=== PATIENT | male | born 1945 | race Caucasian/White ===

== ENCOUNTER 2016-11-23 04:48 | Inpatient (IN) ==
--- NOTE | 2016-11-23 05:16 | Emergency Department Note ---
Disposition Clinical Impression: Atrial fibrillation with RVR, NSTEMI (non-ST elevated myocardial infarction) Congestive heart failure Qualifiers: Congestive heart failure type: unspecified congestive heart failure type Congestive heart failure chronicity: acute Qualified Code(s): I50.9 - Heart failure, unspecified Disposition: Admitted As Inpatient Condition: Serious Arrhythmia/Palpitations HPI - General Chief Complaint: ED Shortness of Breath/Dyspnea Stated Complaint: SOB Time Seen by Provider: 11/23/16 05:04 Source: EMS Limitations: no limitations Nursing Notes Reviewed: Yes Vital Signs Reviewed: Yes - History of Present Illness HPI Narrative: 71-year-old male presents to the emergency department by embolus with a complaint of having palpitations for the past few days. Symptoms became much worse tonight. He states that every time he laid down to try to sleep heart would start racing and fluttering and make him short of breath. He denies any chest pain. He states he does have a history of atrial fibrillation intermittently. He has had some increased cough with white sputum production for the past one or 2 days. No fever. Pt Subjective Complaint: rapid heart beat, irregular heart beat, atrial fibrillation Onset (ago): day(s) (2) Duration: intermittent Severity: moderate Context: occurred during rest Arrhythmia History: atrial fibrillation Associated symptoms: Reports: shortness of breath, vomiting, cough. Denies: chest pain - Related Data Home Medications Medication Instructions Recorded Confirmed ALPRAZolam [Xanax 1 MG Tablet] 1 mg PO TID PRN 10/29/15 10/29/15 Aspirin [Adult Low Dose Aspirin EC] 81 mg PO DAILY 10/29/15 10/29/15 Atorvastatin Calcium [Lipitor] 80 mg PO HS 10/29/15 10/29/15 Carvedilol [Coreg] 3.125 mg PO BID 10/29/15 10/29/15 Clopidogrel [Plavix] 75 mg PO DAILY 10/29/15 10/29/15 Lisinopril [Zestril] 10 mg PO DAILY 10/29/15 10/29/15 Nitroglycerin [Nitrostat] 0.4 mg SL PRN PRN MDD 3 10/29/15 10/29/15 Oxycodone HCl/Acetaminophen 1 tab PO QID 10/29/15 10/29/15 [Percocet 10-325 mg Tablet] Previous Rx's Medication Instructions Recorded Levothyroxine [Synthroid] 50 mcg PO 30 #30 tablet 10/31/15 levoFLOXacin [Levaquin] 500 mg PO DAILY #7 tablet 01/22/16 predniSONE [PredniSONE] 60 mg PO DAILY #30 tablet 01/22/16 Allergies Allergy/AdvReac Type Severity Reaction Status Date / Time No Known Allergies Allergy Verified 11/23/16 04:51 All systems ED: reviewed and negative except as stated. Constitutional: Denies: fever, chills, weakness Cardiovascular: Reports: palpitations. Denies: chest pain, syncope Respiratory: Reports: cough, dyspnea, sputum production. Denies: hemoptysis Gastrointestinal: Reports: nausea, vomiting. Denies: abdominal pain, diarrhea, hematemesis, melena, hematochezia Genitourinary: Denies: dysuria Musculoskeletal: Denies: back pain, neck pain Integumentary: Denies: rash, lesions Neurological: Denies: headache, weakness, numbness, paresthesias, confusion Psychiatric: Denies: anxiety, depression Endocrine: Denies: fatigue Hematological/Lymphatic: Denies: easy bleeding, easy bruising, lymphadenopathy Allergic/Immunologic: Denies: facial swelling, urticaria, itchy eyes Past Medical History - Past Medical History Medical history: Reports: atrial fibrillation, COPD, coronary artery disease, CVA, myocardial infarction, other Surgical history: Reports: carotid endarterectomy, coronary bypass (CABG) Psychiatric history: Reports: no psych history - Social History Smoking Status: Current some day smoker Smokeless Tobacco Status: No Alcohol use: Reports: none Drug use: Reports: none Physical Exam - General Limitations: no limitations General appearance: alert, in no apparent distress - Head Head exam: atraumatic, normocephalic, normal inspection - Eye Eye exam: Present: normal appearance, PERRL. Absent: conjunctival injection - ENT ENT exam: normal exam, normal oropharynx, mucous membranes moist - Neck Neck exam: Present: normal inspection, full ROM, trachea midline. Absent: tenderness, meningismus, lymphadenopathy - Chest Chest inspection: Present: normal inspection, symmetric chest wall rise. Absent : tenderness - Respiratory Respiratory exam: Absent: normal lung sounds bilaterally (Breath sounds are decreased but equal bilaterally.), respiratory distress, wheezes, stridor - Cardiovascular Cardiovascular exam: Present: tachycardia, irregular rhythm, normal heart sounds - Abdominal Exam Abdominal exam: Present: soft, Non-Tender, normal bowel sounds - Extremities Exam Extremities exam: Present: normal inspection, full ROM. Absent: tenderness, pedal edema - Neurological Exam Neurological exam: Present: alert, oriented X3. Absent: motor sensory deficit - Psychiatric Psychiatric exam: Present: normal affect, normal mood - Skin Skin exam: Present: warm, dry, intact, normal color. Absent: cyanosis, diaphoresis Course Course Narrative: Patient presented with palpitations and shortness of breath. He is in atrial fibrillation with RVR. Patient given Cardizem bolus and started on a Cardizem drip. - Consultations Consultation #1: The hospitalist, Dr. aGllardo, was consulted and accepted admission of the patient. He requested giving the patient a dose of by mouth potassium and starting him on a heparin infusion. This was ordered. Time: 05:47 Vital Signs Temperature 98.7 F 11/23/16 04:52 Pulse Rate 128 11/23/16 04:52 Respiratory Rate 18 11/23/16 04:52 Blood Pressure 141/100 11/23/16 04:52 O2 Sat by Pulse Oximetry 91 11/23/16 04:52 Temperature 98.7 F 11/23/16 04:52 Pulse Rate 82 11/23/16 06:38 Respiratory Rate 18 11/23/16 06:52 Blood Pressure 172/86 11/23/16 06:52 O2 Sat by Pulse Oximetry 89 11/23/16 06:38 Oxygen Delivery Oxygen Delivery Nasal Cannula Arrhythmia/Palpitations - Medical Records Medical records reviewed: Yes I reviewed the patient's medical records. - Lab Data Lab results reviewed: Yes I reviewed the patient's lab results. Result diagrams: 11/23/16 05:04 11/23/16 05:04 Lab Results 11/23/16 11/23/16 11/23/16 Range/Units 05:04 05:04 05:04 WBC 9.7 (4.3-11.1) K/mcL RBC 4.62 (4.19-5.50) M/mcL Hgb 13.6 D (12.9-16.9) g/dL Hct 41.6 (37.5-50.1) % MCV 90.0 (83.0-100.0) fL MCH 29.4 (28.0-33.3) pg MCHC 32.7 (31.6-35.5) g/dL RDW 12.8 (11.5-14.5) % Plt Count 264 (140-400) K/mcL MPV 10.0 (9.4-12.4) fL Immature Gran % 0.5 (0-4) % Seg Neutrophils % 78.9 % Lymphocytes % 11.3 % Monocytes % 8.1 % Eosinophils % 0.8 % Basophils % 0.4 % Neutrophils # 7.6 (1.6-8.9) K/mcL Lymphocytes # 1.1 (0.6-4.6) K/mcL Monocytes # 0.8 (0.0-1.3) K/mcL Eosinophils # 0.1 (0.0-0.6) K/mcL Basophils # 0.0 (0.0-0.2) K/mcL PT 11.6 (9.4-12.1) Seconds INR 1.1 APTT 29.2 (26.0-36.0) Seconds Sodium 139 (136-145) mEq/L Potassium 3.7 (3.5-4.5) mEq/L Chloride 103 (98-109) mEq/L Carbon Dioxide 24 (19-29) mEq/L BUN 19 (8-26) mg/dL Creatinine 1.83 H (0.72-1.25) mg/dL Est GFR ( Amer) 45 L (> 60) Est GFR (Non-Af Amer) 37 L (> 60) BUN/Creatinine Ratio 10 (6-26) Glucose 122 H (70-99) mg/dL Calculated Osmolality 292 (280-300) Calcium 9.0 (8.6-10.8) mg/dL Troponin I (0-0.03) ng/mL 11/23/16 Range/Units 05:04 WBC (4.3-11.1) K/mcL RBC (4.19-5.50) M/mcL Hgb (12.9-16.9) g/dL Hct (37.5-50.1) % MCV (83.0-100.0) fL MCH (28.0-33.3) pg MCHC (31.6-35.5) g/dL RDW (11.5-14.5) % Plt Count (140-400) K/mcL MPV (9.4-12.4) fL Immature Gran % (0-4) % Seg Neutrophils % % Lymphocytes % % Monocytes % % Eosinophils % % Basophils % % Neutrophils # (1.6-8.9) K/mcL Lymphocytes # (0.6-4.6) K/mcL Monocytes # (0.0-1.3) K/mcL Eosinophils # (0.0-0.6) K/mcL Basophils # (0.0-0.2) K/mcL PT (9.4-12.1) Seconds INR APTT (26.0-36.0) Seconds Sodium (136-145) mEq/L Potassium (3.5-4.5) mEq/L Chloride (98-109) mEq/L Carbon Dioxide (19-29) mEq/L BUN (8-26) mg/dL Creatinine (0.72-1.25) mg/dL Est GFR ( Amer) (> 60) Est GFR (Non-Af Amer) (> 60) BUN/Creatinine Ratio (6-26) Glucose (70-99) mg/dL Calculated Osmolality (280-300) Calcium (8.6-10.8) mg/dL Troponin I 0.20 H* (0-0.03) ng/mL - Radiology Data Radiology results reviewed: Yes I reviewed the patient's radiology results. Chest X-Ray 11/23/16 05:11 IMPRESSION: Pulmonary edema. D/ / Alfonso Zapata MD / Alfonso Zapata MD Interpreting Provider: Alfonso Zapata MD - EKG Data EKG attestation: Yes I reviewed and interpreted this EKG. EKG results narrative: Atrial fibrillation with RVR, heart rate 120, interventricular conduction delay , possible left ventricular hypertrophy. Critical Care Time Critical Care Time: Yes Total Critical Care Time: 60 Attestation: Critical care performed: Time is exclusive of separately billable procedures. Time includes: direct patient care, patient reassessment, coordination of patient care, interpretation of data (laboratory data, radiology data, and respiratory data), review of patient's medical records, medical consultation and documentation of patient care. Procedures included in critical care time: Procedures excluded from critical care time:
[2016-11-23 05:22] LABS: Basophils % 0.4 %; Eosinophils # 0.1 K/mcL (0.0-0.6); Eosinophils % 0.8 %; Hematocrit 41.6 % (37.5-50.1); Immature Granulocytes % 0.5 % (0-4); Lymphocytes # 1.1 K/mcL (0.6-4.6); Lymphocytes % 11.3 %; Mean Corpuscular HGB Conc 32.7 g/dL (31.6-35.5); Mean Corpuscular Hemoglobin 29.4 pg (28.0-33.3); Monocytes # 0.8 K/mcL (0.0-1.3); Monocytes % 8.1 %; Neutrophils # 7.6 K/mcL (1.6-8.9); Platelet Count 264 K/mcL (140-400); Red Blood Count 4.62 M/mcL (4.19-5.50); Red Cell Distribution Width 12.8 % (11.5-14.5); Segmented Neutrophils % 78.9 %
[2016-11-23 05:27] LABS: INR 1.1; Prothrombin Time 11.6 Seconds (9.4-12.1)
[2016-11-23 05:28] LABS: Hemoglobin 13.6 g/dL (12.9-16.9)
[2016-11-23 05:30] LABS: Activated Partial Thrombo Time 29.2 Seconds (26.0-36.0)
[2016-11-23 05:31] LABS: Potassium 3.7 mEq/L (3.5-4.5)
[2016-11-23] MEDS ORDERED: Furosemide 40 MG/4 ML VIAL IVP ONE (05:42)
[2016-11-23] MEDS ORDERED: Aspirin 81 MG TAB.CHEW PO ONE (05:49)
[2016-11-23] MEDS ORDERED: *HR* Heparin 5,000 UNIT/ML VIAL IVP PRN (06:05)
[2016-11-23] MEDS ORDERED: *HR* Heparin 5,000 UNIT/ML VIAL IVP ONE (06:05)
[2016-11-23] MEDS: Heparin 25,000 UNIT/500 ML D5W 25,000 UNIT/500 ML MLS IVC SCH (06:31)
[2016-11-23] MEDS ORDERED: *HR* OxyCODONE/APAP 10/325 TABLET PO ONE (06:41)
[2016-11-23] MEDS ORDERED: Acetaminophen 325 MG TABLET PO PRN (07:29)
[2016-11-23] MEDS ORDERED: Naloxone 0.4 MG/ML INJ IVP PRN (07:29)
--- NOTE | 2016-11-23 08:23 | Internal Med History&Physical ---
Date of Encounter: 11/23/16 Time of Encounter: 08:15 Assessment and Plan (1) Atrial fibrillation with RVR Current visit: Yes Status: Acute Patient with A. fib in RVR. We will treat with IV diltiazem. Monitor heart rate closely. High risk for complications due to use of intravenous medications to control heart rate. Resume home medications. (2) NSTEMI (non-ST elevated myocardial infarction) Current visit: Yes Status: Suspected Patient with elevated troponin and shortness of breath/chest pain equivalent. Trend troponins. Started on IV heparin. If troponins rise, we will consult cardiology for further recommendations. (3) Chronic kidney disease, stage III (moderate) Current visit: Yes Status: Chronic Patient with chronic kidney disease. Creatinine is at baseline. (4) COPD (chronic obstructive pulmonary disease) Current visit: Yes Status: Suspected Will treat with bronchodilator nebs. No formal diagnosis of COPD. Chest x-ray does not show any acute infiltrate. O2 supplementation as needed. Qualifiers: COPD type: emphysema Emphysema type: centrilobular Qualified Code(s): J43.2 - Centrilobular emphysema (5) Congestive heart failure Current visit: Yes Status: Suspected Patient with pulmonary edema. Treated with Lasix in the ER. We will get 2-D echocardiogram. Follow renal function closely. Qualifiers: Congestive heart failure type: systolic Congestive heart failure chronicity : acute Qualified Code(s): I50.21 - Acute systolic (congestive) heart failure (6) Essential hypertension Current visit: Yes Status: Chronic Uncontrolled. Monitor blood pressure. Resume home medications. Will use intravenous medications if blood pressure remains elevated. Internal Medicine - H&P: HPI Chief complaint: Shortness of breath and palpitations Admitted From: Emergency Dept Plans for Post Hospital Care: Home History of present illness: Mr. Breaux is a 71 year old male patient with a history of coronary artery disease status post coronary artery bypass grafting, atrial fibrillation, COPD presented to the ER with complaints of shortness of breath and palpitations. This began early this morning. Patient became very anxious as a result and was struggling to breathe. EMS was called and on arrival they gave him a breathing treatment which seemed to improve his symptoms. He denies any chest pain. No fever chills or night sweats. He was recently started on Levaquin for an acute urinary tract infection which seems to have improved and he has completed the antibiotic course. No cough or increased sputum production. No dizziness or lightheadedness. No nausea or vomiting. Past Med Surg Social Fam HX - Past Medical History Attestation: Yes The following information was validated with the patient. Source: patient Medical history: atrial fibrillation, COPD, coronary artery disease, CVA, myocardial infarction, other Psychiatric history: no psych history - Past Surgical History Surgical History: carotid endarterectomy, coronary bypass (CABG) - Social History Smoking Status: Current some day smoker Smokeless Tobacco Status: No Alcohol use: none Drug use: none - Additional Family History Additional family history: Reviewed and found to be noncontributory at this time Internal Medicine - H&P: Meds ALPRAZolam [Xanax 1 MG Tablet] 1 mg PO TID PRN 10/29/15 [History] Aspirin [Adult Low Dose Aspirin EC] 81 mg PO DAILY 10/29/15 [History] Atorvastatin Calcium [Lipitor] 80 mg PO HS 10/29/15 [History] Carvedilol [Coreg] 3.125 mg PO BID 10/29/15 [History] Clopidogrel [Plavix] 75 mg PO DAILY 10/29/15 [History] Lisinopril [Zestril] 10 mg PO DAILY 10/29/15 [History] Nitroglycerin [Nitrostat] 0.4 mg SL PRN PRN MDD 3 10/29/15 [History] Oxycodone HCl/Acetaminophen [Percocet 10-325 mg Tablet] 1 tab PO QID 10/29/15 [ History] Levothyroxine [Synthroid] 50 mcg PO 0630 #30 tablet 10/31/15 [Rx] levoFLOXacin [Levaquin] 500 mg PO DAILY #7 tablet 01/22/16 [Rx] predniSONE [PredniSONE] 60 mg PO DAILY #30 tablet 01/22/16 [Rx] Allergies No Known Allergies Allergy (Verified 11/23/16 04:51) All Systems PM: A 10-system review of systems was performed and is negative for pertinent findings except as documented above in the HPI. - Constitutional Constitutional: no chills, no fever(s), no night sweats - EENT Eyes: no change in vision, no discharge, no pain, no photophobia Ears: no ear discharge, no ear pain, no tinnitus Nose, mouth and throat: no dysphagia, no nasal discharge, no neck pain, no sore throat - Cardiovascular Cardiovascular ROS IM: chest pain, dyspnea, dyspnea on exertion, irregular heart rhythm, palpitations, no diaphoresis, no lightheadedness, no syncope - Respiratory Respiratory: wheezing, no cough, no dyspnea, no excessive phlegm production - Gastrointestinal Gastrointestinal: no abdominal pain, no diarrhea, no hematemesis, no hematochezia, no melena, no nausea, no vomiting - Musculoskeletal Musculoskeletal ROS IM: no numbness, no tingling - Integumentary Integumentary IM: no rash, no unusual bruising - Neurological Neurological ROS: no confusion, no convulsions, no focal weakness, no numbness, no tingling, no tremor(s) - Hematologic/Lymphatic Hematologic/Lymphatic: no easy bruising - Constitutional Vitals: Temp Pulse Resp BP Pulse Ox 98 F 101 17 181/89 99 11/23/16 07:34 11/23/16 07:34 11/23/16 07:34 11/23/16 07:34 11/23/16 07:34 General appearance: Present: cooperative, mild distress, A&O X 3, pleasant, answers questions appropriately - Head Head exam: Present: atraumatic, normocephalic - Eye Eye exam: Present: EOMI, PERRL, conjuntiva pink, sclera anicteric - Respiratory Respiratory exam: Present: prolonged expiratory phase, wheezes. Absent: accessory muscle use, rales, rhonchi Additional comments: Basal crackles - Cardiovascular Cardiovascular exam: Present: RRR, +S1, +S2. Absent: diastolic murmur, gallop, rubs, systolic murmur - GI/Abdominal GI/Abdominal exam: Present: normal bowel sounds, soft, no peritoneal signs. Absent: distended, tenderness - Extremities Exam Extremities exam: Present: warm, radial pulses palpable and symetrical. Absent : calf tenderness, cyanotic, pedal edema - Neurological Exam Neurological exam: Present: alert, oriented X3, no focal deficits. Absent: facial droop, speech deficit - Psychiatric Psychiatric exam: Present: anxious - Skin Skin exam: Present: dry, intact Internal Med - H&P Results - Labs CBC & Chem 7: 11/23/16 05:04 11/23/16 05:04 - EKG Data -: EKG Interpreted by Myself - EKG Data EKG comments: 11/23/16 08:24 A. fib with RVR - Impressions Impressions Chest X-Ray 11/23/16 05:11 IMPRESSION: Pulmonary edema. D/ / Alfonso Zapata MD / Alfonso Zapata MD Interpreting Provider: Alfonso Zapata MD - Attending Attestation This document has been at least partially created by ishBowl recognition technology by Dr. Harding. Errors in grammar, wording or other phrases may exist. If errors are found after the documentation is signed, they will be addressed individually in the addendum section of this document when appropriate.
[2016-11-23] MEDS ORDERED: ALPRAZolam 1 MG TABLET PO PRN (08:27)
[2016-11-23] MEDS ORDERED: Ipratropium/Albuterol Neb 3 ML IH PRN (08:39)
[2016-11-23] MEDS: ALPRAZolam 1 MG TABLET PO PRN (08:59)
[2016-11-23] MEDS: Aspirin Enteric Coated 81 MG Tablet PO SCH (09:00)
[2016-11-23] MEDS: Ipratropium/Albuterol Neb 3 ML IH SCH ×4 (11:24→23:41)
--- NOTE | 2016-11-23 14:03 | ECHO - Doppler Report ---
Echo with Saline Contrast Name: Vitaliy Breaux Date of Study: 11/23/2016 Date: 1945 Ht: 71.0 in Medical Record#: [id number] Age: 71 Wt: 174.0 lb Gender: Male BSA: 1.99 Order #: [id number] Location: [facility] Room #: 2ne23 Reading Physician: Seth Gallegos DO, LUCILLE YATES Web Operations Specialist: Raúl Robin RDCS Ordering Physician: Pito Harding MD Primary Physician: Indications: Nstemi Impressions: LVEF 30%. Mildly dilated left ventricle. Severe global left ventricular systolic dysfunction. Moderate left ventricular diastolic dysfunction. Atypical septal motion consistent with bundle branch block/postoperative septum. Normal right ventricular structure and function. Severely dilated left atrium. Moderately dilated right atrium. No evidence of PFO with agitated saline contrast. Mild-moderate mitral regurgitation. Mild tricuspid regurgitation. Mild pulmonary hypertension. Left Ventricular Wall Motion: Rest Echo Findings The apex, apical inferior, mid inferior, basal inferior, apical anterior, mid anterior, basal anterior, apical septal, mid inferior septal, basal inferior septal, apical lateral, mid anterior lateral, basal anterior lateral, mid anterior septal, mid inferior lateral, basal anterior septal and basal inferior lateral benítez were hypokinetic. Findings: Study Quality * Technically adequate exam. ECG Findings * Sinus rhythm with BBB. Left Ventricle * LVEF 30%. * Mildly dilated left ventricle. * Severe global left ventricular systolic dysfunction. * Moderate left ventricular diastolic dysfunction. * Atypical septal motion consistent with bundle branch block/postoperative septum. Right Ventricle * Normal right ventricular structure and function. Left Atrium * Severely dilated left atrium. Right Atrium * Moderately dilated right atrium. Interatrial Septum * No evidence of PFO with agitated saline contrast. Aortic Valve * Trileaflet aortic valve with normal function. * No aortic regurgitation. * No aortic stenosis. Mitral Valve * Mild mitral annular calcification * No mitral stenosis. * Mild-moderate mitral regurgitation. Tricuspid Valve * Normal tricuspid valve structure. * Mild tricuspid regurgitation. * Mild pulmonary hypertension. Pulmonic Valve * Normal pulmonic valve structure and function. * No pulmonic regurgitation. Aorta * Normally sized aortic root. Pericardium * The pericardium appears normal. IVC * Normal IVC dimensions and inspiratory collapse. Pulmonary Artery * Normal visualized portions of the main pulmonary artery. History Hypertension Hypercholesteremia History of Smoking Years 50 Packs 0.5 Family History of CAD History of CAD/PTCA Myocardial Infarction Coronary Artery Bypass Graft Congestive Heart Failure 03/28/11 a Previous Echo was performed. Contrast: Agitated saline 2 ml. Measurements: BP: 181/ 89 2D Normal Values RVIDd: 2.80 cm <2.7 cm IVSd: 1.20 cm 0.6 - 1.0 cm LVIDd: 6.00 cm 3.7 - 5.6 cm LVPWd: 1.00 cm 0.6 - 1.1 cm LVIDs: 4.80 cm 1.5 - 3.6 cm AO: 3.50 cm < 4.0 cm %FS: 20.00 cm >25 % LA volume: 110 Mitral Valve Peak E:.72 m/sec Peak A:.34 m/sec E/A Ratio:2.1 Peak E' Lat Reji:3.02 cm/s Peak E' Med Reji:3.55 cm/s E/E' Lat Ratio:23.9 E/E' Med Ratio:20.3 Tricuspid Valve TV Regurg Peak Grad: 33.00mmHg TV Regurg Peak Reji: 2.89m/sec Updated by Seth Gallegos DO, FACMonserrat, GERONIMO ADKINS on 11/23/2016 1:58:26 PM electronically signed on 11/23/2016 1:58:58 PM with status of Final Wall Motion Bui: 1=Normal, 2=Hypokinesis, 3=Akinesis, 4=Dyskinesis, 5=Aneurysmal, 6=Hyperkinetic, X=Not Visualized (Blank)=Missing
[2016-11-23] MEDS ORDERED: Nitroglycerin 0.4 MG TAB.SUBL SL PRN (16:53)
[2016-11-23] MEDS ORDERED: Pregabalin 75 MG CAPSULE PO PRN (16:53)
[2016-11-23] MEDS: *HR* OxyCODONE/APAP 10/325 TABLET PO PRN (21:13)
[2016-11-23] MEDS: *HR* Heparin 5,000 UNIT/ML VIAL IVP PRN (21:17)
[2016-11-24 03:52] LABS: Hemoglobin A1C 5.2 %
[2016-11-24 03:58] LABS: Chol/HDL Ratio 3.5 (0-4.9)
[2016-11-24] MEDS: Ipratropium/Albuterol Neb 3 ML IH SCH ×6 (04:24→23:39)
[2016-11-24] MEDS: Heparin 25,000 UNIT/500 ML D5W 25,000 UNIT/500 ML MLS IVC SCH ×2 (05:09→20:00)
--- NOTE | 2016-11-24 07:03 | Electrocardiograph Report ---
[place] [id number] Test Date: 2016-11-23 Pat Name: Vitaliy Breaux Department: 102 Room: 2NE23 Gender: M Pairer Substandard: : 1945 Requested By: Larry Saba Order Number: [id number] Reading MD: Giovany Prince MD Measurements Intervals [place] Rate: 120 P: [place]: 0 QRS: 4 QRSD: 134 T: 161 QT: 318 QTc: 390 Interpretive Statements ATRIAL FIBRILLATION WITH RAPID VENTRICULAR RESPONSE WITH ABERRANT CONDUCTION OR VENTRICULAR PREMATURE COMPLEXES LBBB Electronically Signed On 11-24-2016 7:02:09 EDT by Giovany Prince MD
--- NOTE | 2016-11-24 08:36 | Cardiology Consult Note ---
Date of Encounter: 11/24/16 Time of Encounter: 08:26 Assessment and Plan (1) NSTEMI (non-ST elevated myocardial infarction) Current Visit: Yes Status: Suspected troponin .2>8.99>7.65 ECHO with EF 30%, left ventricular systolic and diastolic dysfunction, mitral and tricuspid regurgitation and mild pulm htn EKG with Afib RVR, PVC, LBBB cholesterol 110 on IV heparin, ptt 70.1 plan for cardiac cath (2) Atrial fibrillation with RVR Current Visit: Yes Status: Acute on diltiezem Monitor heart rate HR 82 BP 130/65 previously only taking 81mg asprin and 75 plavix recommend perioperative tech anticoagulation as outpt (3) Chronic kidney disease, stage III (moderate) Current Visit: Yes Status: Chronic CR 1.83, at baseline. (4) Essential hypertension Current Visit: Yes Status: Chronic uncontrolled Monitor blood pressure, currently 130/65 on diltiazem (5) COPD (chronic obstructive pulmonary disease) Current Visit: Yes Status: Suspected recommend continue bronchodilators and supplemental O2 as needed follow pulmonology recommendations Qualifiers: COPD type: emphysema Emphysema type: centrilobular Qualified Code(s): J43.2 - Centrilobular emphysema (6) Aortocoronary bypass status Current Visit: No Status: Chronic (7) CAD (coronary artery disease) Current Visit: No Status: Chronic Qualifiers: Coronary Disease-Associated Artery/Lesion type: [place] artery [place] vs. transplanted heart: [place] heart Associated angina: without angina Qualified Code(s): I25.10 - Atherosclerotic heart disease of [place] coronary artery without angina pectoris Discussion w patient/family: The assessment and plan as outlined above was discussed with the patient and/or family members who expressed understanding and agreement. All questions were answered. Thank you for involving us in the care of your patient. Please call with any questions. History of Present Illness Consult date: 11/24/16 Requesting physician: Neil Rangel Consult reason: troponin elevation Chief complaint: palpitations History of present illness: Mr. Breaux is a 71 year old male PMHx afib, CHF, HTN, s/p stent placement and CABG, hypothyroid, COPD with c/o palpitations. Pt states that he started having heart palpitations and shortness of breath about 3 days ago. He states racing irregular heart beats occurred intermittently throughout the day, seemed they were worse at night while laying down. He states irregular beats and dyspnea were progressively getting worse which which caused him to present to theER. Pt states he has had palpitations in the past with his afib, but has been well controlled by coreg for many years and have never been this bad before. palpitations and shortness of breath were not relieved at home with daily 81mg asprin or with rest. Pt denies having chest pain, diaphoresis, lightheadedness or syncope at this time. Past Med Surg Social Fam HX - Past Medical History Medical history: atrial fibrillation, COPD, coronary artery disease, CVA, myocardial infarction, other Psychiatric history: no psych history - Past Surgical History Surgical History: carotid endarterectomy, coronary bypass (CABG) - Social History Smoking Status: Current some day smoker Packs per day: 0.5 Smokeless Tobacco Status: No Alcohol use: none Drug use: none - Family History Mother Living Status: Hx Family Cardiac Disorders: Yes Father Living Status: Hx Family Cardiac Disorders: Yes Hx Family Respiratory Disorders: Yes Medications and Allergies ALPRAZolam [Xanax 1 MG Tablet] 1 mg PO TID PRN 10/29/15 [History] Aspirin [Adult Low Dose Aspirin EC] 81 mg PO DAILY 10/29/15 [History] Atorvastatin Calcium [Lipitor] 80 mg PO HS 10/29/15 [History] Carvedilol [Coreg] 3.125 mg PO BID 10/29/15 [History] Clopidogrel [Plavix] 75 mg PO DAILY 10/29/15 [History] Lisinopril [Zestril] 10 mg PO DAILY 10/29/15 [History] Nitroglycerin [Nitrostat] 0.4 mg SL PRN PRN MDD 3 10/29/15 [History] Oxycodone HCl/Acetaminophen [Percocet 10-325 mg Tablet] 1 tab PO QID PRN [History] Levothyroxine [Synthroid] 50 mcg PO 0630 #30 tablet 10/31/15 [Rx] predniSONE [PredniSONE] 60 mg PO DAILY #30 tablet 01/22/16 [Rx] Pregabalin [Lyrica] 150 mg PO BID PRN 11/23/16 [History] Allergies No Known Allergies Allergy (Verified 11/23/16 15:40) All Systems Review: A 10-system review of systems was performed and is negative for pertinent findings except as documented above in the HPI. - Constitutional Constitutional: no headache(s), no weakness - EENT Eyes: no blurred vision - Cardiovascular Cardiovascular: dyspnea at rest, dyspnea on exertion, irregular heart rhythm, palpitations, rapid heart rate, no chest pain at rest, no chest pain with exertion, no diaphoresis, no radiating jaw, neck or arm pain, no lightheadedness , no syncope - Respiratory Respiratory: dyspnea, wheezing, no hemoptysis - Gastrointestinal Gastrointestinal: no nausea - Musculoskeletal Musculoskeletal: back pain - Integumentary Integumentary: no unusual bruising - Neurological Neurological: no dizziness, no numbness, no syncope, no tingling - Hematological/Lymphatic Hematologic/Lymphatic: no easy bleeding, no easy bruising Physical Examination Vital Signs, Last 4 Hours Temp Pulse Resp BP Pulse Ox 11/24/16 07:00 97.6 F 82 15 130/65 93 11/24/16 04:50 67 16 136/58 95 General: Conversant, No Apparent Distress HEENT: Atraumatic, Normocephaly, Mucus Membranes Moist Neck: No JVD, Normal carotid pulses Cardiac: Other (irregular rhythm) Lungs: Other (wheezing anterior and posterior b/l throughout lung jackson) Neuro: Alert and responsive, No focal deficits noted Abdomen: Soft, Non-Tender Skin: No rashes noted on visualized skin Musculoskeletal: No Chest Wall Tenderness Extremities: No Clubbing, No Cyanosis, No Edema Results 11/23/16 05:04 11/23/16 05:04 Lab Results 11/23/16 11/23/16 11/23/16 12:02 12:02 18:28 APTT 70.5 H D Troponin I 8.99 H* 7.65 H* 11/23/16 11/24/16 18:28 03:15 APTT 55.7 H 70.1 H Troponin I - Imaging and Cardiology Echo: report reviewed - EKG Interpretation EKG results cardiology: personally reviewed, other (Afib RVR, PVC, LBBB) Consult Discharge Plan - Plan Referrals: Hansel Ness [Primary Care Provider] -
[2016-11-24] MEDS: Aspirin Enteric Coated 81 MG Tablet PO SCH (11:16)
[2016-11-24] MEDS: *HR* OxyCODONE/APAP 10/325 TABLET PO PRN ×3 (11:29→23:55)
--- NOTE | 2016-11-24 11:31 | Electrocardiograph Report ---
[place] [id number] Test Date: 2016-11-23 Pat Name: Vitaliy Breaux Department: 111 Room: 2NE23 Gender: M Global Lead: CESAR : 1945 Requested By: Neil Rangel Order Number: [id number] Reading MD: Vee Cardoza Measurements Intervals [place] Rate: 60 P: -19 CA: 175 QRS: -1 QRSD: 138 T: -65 QT: 476 QTc: 477 Interpretive Statements SINUS RHYTHM INTRAVENTRICULAR CONDUCTION DELAY LEFT VENTRICULAR HYPERTROPHY AND ST-T CHANGE Electronically Signed On 11-24-2016 11:30:10 EDT by Vee Cardoza
[2016-11-24] MEDS: ALPRAZolam 1 MG TABLET PO PRN ×3 (12:57→21:53)
--- NOTE | 2016-11-24 14:17 | Internal Med Progress Note ---
Date of Encounter: 11/24/16 Time of Encounter: 14:14 - Assessment and plan (1) NSTEMI (non-ST elevated myocardial infarction) Current Visit: Yes Status: Suspected Assessment and plan: troponin .2>8.99>7.65 ECHO with EF 30%, left ventricular systolic and diastolic dysfunction, mitral and tricuspid regurgitation and mild pulm htn EKG with Afib RVR, PVC, LBBB on IV heparin,cardiology consulted plan for cardiac cath will follow recommendation (2) COPD (chronic obstructive pulmonary disease) Current Visit: Yes Status: Suspected Assessment and plan: will continue duonebs. no wheezig on exam and sating ok on 2 l of NC. not in exacerbation and does not need steroids at this time. Qualifiers: COPD type: emphysema Emphysema type: centrilobular Qualified Code(s): J43.2 - Centrilobular emphysema (3) CAD (coronary artery disease) Current Visit: No Status: Chronic Qualifiers: Coronary Disease-Associated Artery/Lesion type: [place] artery [place] vs. transplanted heart: [place] heart Associated angina: without angina Qualified Code(s): I25.10 - Atherosclerotic heart disease of [place] coronary artery without angina pectoris (4) Essential hypertension Current Visit: Yes Status: Chronic Assessment and plan: BP stable (5) Atrial fibrillation with RVR Current Visit: Yes Status: Acute Assessment and plan: presenetd with Atrial fib RVR, started on cardizem drip HR much controlled now, resumed back on BB. - Time Spent With Patient 25 - 35 minutes - Subjective Interval history: seen at the bedside, denies any chest pain or sob today presented with sob yesterday. started on heparin drip for NSTEMI - Constitutional Vitals: Temp Pulse Resp BP Pulse Ox 97.6 F 82 16 130/65 92 11/24/16 07:00 11/24/16 07:00 11/24/16 11:08 11/24/16 07:00 11/24/16 11:08 General appearance: Present: cooperative, A&O X 3, pleasant, answers questions appropriately Exam: HEENT: Atraumatic, Normocephaly, Mucus Membranes Moist Neck: No JVD, Normal carotid pulses Cardiac: Other (irregular rhythm) Lungs: b/l clear, no added sounds Neuro: Alert and responsive, No focal deficits noted Abdomen: Soft, Non-Tender Skin: No rashes noted on visualized skin Musculoskeletal: No Chest Wall Tenderness Extremities: No Clubbing, No Cyanosis, No Edema Internal Medicine: Result - Labs CBC & Chem 7: 11/23/16 05:04 11/23/16 05:04 Labs: Cardiac Enzymes 11/23/16 Range/Units 18:28 Troponin I 7.65 H* (0-0.03) ng/mL - ABG Interpretation ABG results: PT/INR, D-dimer PT 11.6 Seconds (9.4-12.1) 11/23/16 05:04 Consult Discharge Plan - Plan Referrals: Hansel Ness [Primary Care Provider] -
--- NOTE | 2016-11-24 15:04 | Pre-Sedation Evaluation ---
Pre-sedation evaluation - Pre-sedation checklist Date of procedure: 11/24/16 Procedure: [facility] Recent Vitals: Last Vital Signs Temp 97.6 F 11/24/16 07:00 Pulse 82 11/24/16 07:00 Resp 16 11/24/16 11:08 BP 130/65 11/24/16 07:00 Pulse Ox 92 11/24/16 11:08 H&P (including ROS) documented in medical record: Yes Previous reaction to sedatives/anesthetics: No Dietary Status: NPO after Midnight Dentition: No loose teeth or bridges ASA Classification *see protocol: CLASS II-Mild systemic disease Plan of Care: Pt appropriate candidate for procedure/moderate/conscious sedation , Risks/benefits of procedure/sedation discussed w/ patient/family
[2016-11-24] MEDS ORDERED: 0.9 % Sodium Chloride 1,000 ML ONE ×2 (15:27→15:28)
[2016-11-24] MEDS ORDERED: *HR* Midazolam HCl 5 MG/5 ML VIAL IVP ONE (15:27)
[2016-11-24] MEDS ORDERED: *HR* FentaNYL (PF) 100 MCG/2 ML VIAL ONE (15:27)
[2016-11-24] MEDS ORDERED: *HR* Heparin 10,000 UNIT/10 ML VIAL ONE (15:29)
[2016-11-24] MEDS ORDERED: Heparin 1,000 UNITS/500 mL NS 500 ML ONE (15:29)
--- NOTE | 2016-11-24 16:28 | Event Note ---
Date of Encounter: 11/24/16 Time of Encounter: 16:30 - Cardiology Event Note 2/2 patent bypasses LEBLANC LAD, SVG PDA with nonobstructive disease in the circumflex. EF 20-25%. Suspect myocarditis, probably viral, as cause of NSTEMI /?acute CHF.
--- NOTE | 2016-11-24 16:43 | Invasive Diagnostic Lab Proc ---
Name: Vitaliy Breaux Date of Study: 11/24/2016 Date: 1945 Ht: 70.9in Medical Record#: [id number] Age: 71 Wt: 173.94lb Gender: Male BSA: 1.98 Order #: [id number] BMI: 24.35 Physicians Procedure Physician: Giovany Prince MD, [facility] Referring MD: Referring MD: Staff Name [facility] Scrub 03:38 PM Lana Ray RN Trauma Registrar 03:38 PM Alicia Breaux RN Monitor 03:38 PM Indications Indication Non-Stemi Procedures Performed Procedure L HRT ART/GRFT ANGIO Pre-Procedure Checklist Informed consent is complete signed and on chart. H\\T\\P is on chart. ID band is on and ID verified with patient. Patient NPO for procedure The procedure was described for the patient and questions were answered. Blood Pressure: 130/65 ECG is on chart. Rhythm: NSR Plan of Care Patient will tolerate the procedure without complications. Adequate level of comfort will be maintained. Hemodynamics will remain stable Patient will recover from procedure without complications. Respiratory function will be maintained. Cardiac rhythm will remain stable. Patient temperature will be maintained. Patient and/or family have verbalized understanding of the procedure. Patient Education Chief Complaint/Reason for Test: Cardiac Cath Developmental Category: Adult (18-64 years) Developmentally Appropriate for Age: Yes Learning Barriers: None Education Needs: Procedure Education Method: Verbal Information Taught: Cardiac Cath Educational Evaluation: Able to repeat information Intravenous Access Time IV Size Location DC'd Fluid/Drip Rate Units RN 03:24 PM 18g 1 1/4" Patent On Arrival Rt Antecubital 0.9NaCl 25 ml/hr Stephanie Osorio RN 03:40 PM 18g 1 1/4" Patent On Arrival Rt Antecubital 0.9NaCl 150 ml/hr Stephanie Osorio RN Allergies NKDA Vital Signs Time BP (mmHg) HR (bpm) O2 Sat. RR (bpm) LOC 03:40 PM / % 5 = Fully awake and oriented or at pre-proc level 03:40 PM / % 5 = Fully awake and oriented or at pre-proc level 03:55 PM / % 5 = Fully awake and oriented or at pre-proc level 04:00 PM / % 5 = Fully awake and oriented or at pre-proc level 03:41 PM 156 / 87 74 95 % 11 03:45 PM 148 / 76 64 97 % 17 03:50 PM 137 / 72 66 93 % 18 03:55 PM 132 / 72 80 94 % 19 04:00 PM 138 / 81 72 92 % 12 04:05 PM 131 / 70 68 93 % 19 04:10 PM 131 / 67 71 93 % 11 04:15 PM 133 / 71 117 92 % 15 Procedural Medications Time Medication Dose Units Method Given By 03:39 PM Oxygen 2 L/min nasal cannula Lana Ray RN 03:43 PM Versed 2 mg Intravenous Lana Ray RN 03:43 PM Fentanyl 50 mcg Intravenous Lana Ray RN 03:55 PM Lidocaine 2% 15 ml Subcutaneous Giovany Prince MD, FACC 03:55 PM Versed 1 mg Intravenous Lana Ray RN 03:56 PM Fentanyl 25 mcg Intravenous Lana Ray RN 04:21 PM Fentanyl 25 mcg Intravenous Lana Ray RN ASA Classification: CLASS II- Mild systemic disease (i.e. well-controlled diabetes, hypertension, asthma, cigarette smoking) Josefa Score Preprocedure Postprocedure Activity 2- Moves 4 extremities sustained head lift Activity 2- Moves 4 extremities sustained head lift Circulation 2- SBP +/= 20 points of pre-anesthetic level Circulation 2- SBP +/= 20 points of pre-anesthetic level Consciousness 2- Awake and alert oriented x 3 Consciousness 2- Awake and alert oriented x 3 O2 Saturation 2- Able to maintain O2 satruation of 92% on room air O2 Saturation 2- Able to maintain O2 satruation of 92% on room air Respiratory 2- Able to deep breathe and cough well Respiratory 2- Able to deep breathe and cough well Total Score 10 Total Score 10 Contrast Agent: Isovue Diagnostic Contrast: 77 ml Total Contrast: 77 ml Fluoro Dose: 460 mGy Procedure Log Time Note Enter By 03:25 PM CathStat 03:38 PM Pt arrived to lab animal technologist 2 at 15:[address] [facility] 03:38 PM Zohreh Borrego RT (R) Position: Scrub [facility]: [facility] 03:38 PM Lana Ray RN Position: Trauma Registrar Time in: 15:[address] [facility] 03:38 PM Alicia Breaux RN Position: Monitor Time in: 15:38 [facility] 03:38 PM Patient charges- Angio tray pack, Navilyst 3mm J, Pulse Oximetry and ACIST tubing and transducer :39 PM Case Delayed No :39 PM Hair removed from procedure site in holding area using clippers. Bilateral groin prepped with Chloraprep by Stephanie Osorio RN, safety strap applied then patient was draped. Skin intact. :39 PM Physician arrived 15:39 PM ASA Class CLASS II- Mild systemic disease (i.e. well-controlled diabetes, hypertension, asthma, cigarette smoking) :39 PM Meet and greet completed : PM Sign in performed according to hospital policy. :39 PM Procedure start 15:39 PM Time: 15:39 Oxygen on at 2 L/min per nasal cannula by Lana Ray RN [facility] :40 PM Time: 15:39 Patient comfortable and pain free: Yes ejohnson 03:40 PM Time: 15:40LOC: 5 = Fully awake and oriented or at pre-proc level ejohnson 03:40 PM Vitals capture started with the following parameters, Patient=Adult, Interval=5 min, Initial Rkweinnw=541 mmHg, Deflation Rate=5 mmHg, Cuff placed on Left Arm 03:40 PM [ Start or Stop Vital ] 03:40 PM IV 0.9 at 150ml/hr per V. O. Dr. Prince ejwansrossana 03:41 PM HR=74 bpm, XIKZ=202/87 mmhg, SpO2=95.0 %, Resp=11 B/min, Comment=SR 03:41 PM Recorded ECG: HR=76 Condition=Condition 1 03:43 PM Time: 15:43 Versed 2 mg Intravenous Given by Lana Ray RNwaavila 03:43 PM Time: 15:43 Fentanyl 50 mcg Intravenous Given by Lana Ray RNwaavila 03:45 PM HR=64 bpm, DJSK=491/76 mmhg, SpO2=97.0 %, Resp=17 B/min, Comment=SR 03:50 PM HR=66 bpm, BGJT=226/72 mmhg, SpO2=93.0 %, Resp=18 B/min, Comment=SR 03:55 PM Time: 15:40 Patient comfortable and pain free: Yes ejohnson 03:55 PM Time: 15:40LOC: 5 = Fully awake and oriented or at pre-proc level ejohnson 03:55 PM HR=80 bpm, ZSLJ=026/72 mmhg, SpO2=94.0 %, Resp=19 B/min, Comment=SR 03:55 PM Time: 15:55 15 ml Lidocaine 2% to right groin Subcutaneous Given by Giovany Prince MD, FACC ejohnson 03:55 PM Time: 15:55 Versed 1 mg Intravenous Given by Lana Ray RN ejohnson 03:56 PM Time: 15:56 Fentanyl 25 mcg Intravenous Given by Lana Ray RN ejohnson 03:57 PM Recorded Pressure: Ao, HR=79, Condition=Condition 1 (Aorta) Ao 140/77/102 03:58 PM Access obtained by percutaneous puncture. 5Fr 10cm Terumo Lena sheath placed in right Femoral artery. [id number] ejohnson 03:58 PM 5Fr FR 4 catheter inserted over the wire DNC ejohnson 03:59 PM Recorded Pressure: Ao, HR=89, Condition=Condition 1 (Aorta) Ao 122/87/104 04:00 PM SVG to the RPDA angio performed in multiple views. ejohnson 04:00 PM Time: 15:55 Patient comfortable and pain free: Yes ejohnson 04:00 PM Time: 15:55LOC: 5 = Fully awake and oriented or at pre-proc level ejohnson 04:00 PM HR=72 bpm, YVPT=376/81 mmhg, SpO2=92.0 %, Resp=12 B/min, Comment=SR 04:01 PM Recorded Pressure: Ao, HR=74, Condition=Condition 1 (Aorta) Ao 119/85/101 04:02 PM Catheter removed ejohnson 04:02 PM 5Fr IM catheter inserted over the wire [id number] ejohnson 04:03 PM Recorded Pressure: Ao, HR=73, Condition=Condition 1 (Aorta) Ao 118/76/96 04:04 PM Left VALENTIN to the LAD angio performed in multiple views. ejohnson 04:05 PM Catheter removed ejohnson 04:05 PM HR=68 bpm, WHLD=177/70 mmhg, SpO2=93.0 %, Resp=19 B/min, Comment=SR 04:06 PM 5Fr FL 4 catheter inserted over the wire DN ejohnson 04:07 PM LCA angiography performed in multiple views. ejohnson 04:07 PM Recorded Pressure: Ao, LT=722, Condition=Condition 1 (Aorta) Ao 112/85/98 04:08 PM Lesion found in LMCA. Pre Stenosis: 30 Pre ANN MARIE Flow: 3: Complete and Brisk Flow/Perfusion ejohnson 04:08 PM Lesion found in Proximal LAD. Pre Stenosis: 80 Pre ANN MARIE Flow: 3: Complete and Brisk Flow/Perfusion ejohnson 04:08 PM Catheter removed ejohnson 04:08 PM 5Fr Pigtail catheter inserted over the wire [facility] ejohnson 04:08 PM Catheter selectively placed in left ventricle ejohnson 04:10 PM Recorded Pressure: LV, HR=74, Condition=Condition 1 (Left Ventricle) LV 135/11/21 04:10 PM Bolus angiogram of left Ventricle complete: 12 ml/sec for a total of 30 mls ejohnson 04:10 PM HR=71 bpm, XCKN=961/67 mmhg, SpO2=93.0 %, Resp=11 B/min, Comment=SR 04:11 PM Recorded Pressure: LV, Ao, OS=207, Condition=Condition 1 (Left Ventricle) LV 119/38/51, (Aorta) Ao 117/88/99 04:12 PM Catheter removed ejohnson 04:12 PM 5Fr 3DRC catheter inserted over the wire [id number] ejohnson 04:13 PM Catheter removed ejohnson 04:14 PM Lesion found in Proximal Circumflex. Pre Stenosis: 20 Pre ANN MARIE Flow: 3: Complete and Brisk Flow/Perfusion ejohnson 04:14 PM Lesion found in Mid Circumflex. Pre Stenosis: 20 Pre ANN MARIE Flow: 3: Complete and Brisk Flow/Perfusion ejohnson 04:14 PM Left Main Coronary Artery with 30% stenosis ejohnson 04:14 PM Proximal Left Anterior Descending Coronary Artery with 80% stenosis. ejohnson 04:14 PM Catheter removed ejohnson 04:15 PM Lesion found in Proximal RCA. Pre Stenosis: 100 Pre ANN MARIE Flow: 0: No Flow/No perfusion ejohnson 04:15 PM Circumflex, Obtuse Marginal, Left Posterior Descending, and Left Posterolateral Coronary Arteries with 20 % stenosis. ejohnson 04:15 PM YB=719 bpm, QAIE=250/71 mmhg, SpO2=92.0 %, Resp=15 B/min, Comment=SR 04:15 PM Time: 16:00LOC: 5 = Fully awake and oriented or at pre-proc level ejohnson 04:15 PM Time: 16:00 Patient comfortable and pain free: Yes ejohnson 04:16 PM Right Coronary, Right Posterior Descending Arteries with Right Posterolateral and Acute Marginal branches with 100 % stenosis. ejohnson 04:16 PM Coronary Dominance: right ejohnson 04:19 PM Procedure completed at 16:19 ejohnson 04:19 PM Sign out completed: Radiation Dose 460.22 mGy Fluoro Time: 5.5 Isovue 370 - 200ml contrast 77 ml given by Giovany Prince MD, FACC. Complications: NoneCardiac Rehab Consult needed: NoConfirmed administered medications: Yes ejohnson 04:19 PM Post ECG NSR ejohnson 04:20 PM Post Blood Pressure 133/71 ejohnson 04:20 PM Arterial sheath pulled using manual compression and sterile 4x4 pressure will be held for 15 minutes by Stephanie Osorio RN ejohnson 04:20 PM 16:20 Post Pulses Bilateral DP \\T\\ PT 1+ ejohnson 04:21 PM Information taught Cardiac Cath ejohnson 04:21 PM Time: 16:21 Fentanyl 25 mcg Intravenous Given by Lana Ray RN ejohnson 04:26 PM Education needs Plan of Care and Responsibilities of Patient in Care ejohnson 04:26 PM Learning barriers :None ejohnson 04:26 PM Education Methods Verbal ejohnson 04:26 PM Education evaluation Able to repeat information ejohnson 04:26 PM Plavix, Effient or Brilinta given No ejohnson 04:26 PM Family was updated by telephone per patient request (daughter Belle) ejohnson 04:27 PM Complications: None ejohnson 04:36 PM Report given to Maria Antonia CHRIS Pt taken to E Room #23. 16:36 ejohnson 04:37 PM Patient out of room: 16:37 ejohnson 04:37 PM Opsite applied ejohnson 04:37 PM Site status No bleeding/hematoma - Rt Groin as reported by Stephanie Oosrio RN at 16:37 ejohnson Complications Complication None Hemodynamics Pressures Site Systolic/A Wave Diastolic/V Wave Mean AO 140 77 102 AO 122 87 104 AO 119 85 101 AO 118 76 96 AO 112 85 98 LV 135 11 21 LV 119 38 51 AO 117 88 99 Post Procedure Information Blood Pressure: 133/71 mmHg Rhythm: NSR Post procedural instructions were given Closure Device Time Device Success/Fail 11/24/2016 4:20:00 PM Manual Compression Successful Site Checks Time Location Status Staff Sheath In? Note 04:37 PM Rt Groin No bleeding/hematoma Stephanie Osorio RN Pulses Time Site Pre-Procedure Post-Procedure Note 11/24/2016 3:41:00 PM Bilateral DP 1+ 11/24/2016 3:41:00 PM Bilateral radial 2+ 4:20:00 PM Bilateral DP \\T\\ PT 1+ Updated by Alicia Breaux RN on 11/24/2016 4:38:43 PM Alicia Breaux RN electronically signed on 11/24/2016 4:39:14 PM with status of Final
[2016-11-25] MEDS: Ipratropium/Albuterol Neb 3 ML IH SCH ×3 (03:43→11:08)
[2016-11-25] MEDS: *HR* Heparin 5,000 UNIT/ML VIAL IVP PRN (04:23)
[2016-11-25] MEDS: Heparin 25,000 UNIT/500 ML D5W 25,000 UNIT/500 ML MLS IVC SCH (05:27)
[2016-11-25 08:04] VITALS: BP 141/73
[2016-11-25] MEDS: Aspirin Enteric Coated 81 MG Tablet PO SCH (08:04)
[2016-11-25] MEDS: *HR* OxyCODONE/APAP 10/325 TABLET PO PRN ×2 (08:04→13:50)
--- NOTE | 2016-11-25 09:39 | Cardiology Progress Note ---
Date of Encounter: 11/25/16 Time of Encounter: 09:34 Assessment and Plan (1) Atrial tachycardia Current Visit: Yes Status: Acute all EKGs and tele strips reviewed, patient with atrial tachycardia and frequent PACs seen, no evidence of afib appreciated Monitor heart rate continue taking asprin, plavix,coreg may not need assistant terminal manager anticoagulation in absence of afib recommend out-patient follow up and repeat ECHO in 3 months (2) CAD (coronary artery disease) Current Visit: No Status: Chronic troponin .2>8.99>7.65 ECHO with EF 30%, left ventricular systolic and diastolic dysfunction, mitral and tricuspid regurgitation and mild pulm htn EKG with Afib RVR, PVC, LBBB cholesterol 110 on IV heparin Cardiac catheterization showing patent stents, patent LEBLANC bypass, circumflex with non-obstructing disease recommend outpatient follow up and repeat ECHO in 3 months Qualifiers: Coronary Disease-Associated Artery/Lesion type: [place] artery [place] vs. transplanted heart: [place] heart Associated angina: without angina Qualified Code(s): I25.10 - Atherosclerotic heart disease of [place] coronary artery without angina pectoris (3) Chronic kidney disease, stage III (moderate) Current Visit: Yes Status: Chronic CR 1.83, at baseline. (4) Essential hypertension Current Visit: Yes Status: Chronic uncontrolled Monitor blood pressure (5) COPD (chronic obstructive pulmonary disease) Current Visit: Yes Status: Suspected recommend continue bronchodilators and supplemental O2 as needed follow pulmonology recommendations Qualifiers: COPD type: emphysema Emphysema type: centrilobular Qualified Code(s): J43.2 - Centrilobular emphysema (6) Aortocoronary bypass status Current Visit: No Status: Chronic Bypass graft patent on catheterization Discussion w patient/family: The assessment and plan as outlined above was discussed with the patient and/or family members who expressed understanding and agreement. All questions were answered. Thank you for involving us in the care of your patient. Please call with any questions. Subjective Principal diagnosis: CAD Interval history: 79 yo M PMhx CHF, Afib,HTN, CKD3 s/p CABG and stent placement presented with c/ o heart palpitations in Afib RVR with troponin elevations, placed on heparin drip underwent cardiac catheterization yesterday. Pt states palpitations have stopped since admission, he feels well overall. He denies any chest pain with improvement of dyspnea and states it is near baseline secondary to COPD. Denies any numbness/tingling, lightheadedness, diaphoresis and states he has no other concerns at this time. He states he feels much better since admission and wants to go home today because he has an appointment with his doctor tomorrow that he does not want to miss. Objective Vital Signs, Last 4 Hours Pulse Resp BP Pulse Ox 11/25/16 07:48 16 95 11/25/16 07:00 74 16 141/73 98 General: Conversant, No Apparent Distress HEENT: Atraumatic, Normocephaly, Mucus Membranes Moist Neck: No JVD, Normal carotid pulses Cardiac: No Murmur, Other (irregular) Lungs: Other (b/l wheeze, diiminshed breath sounds at bases) Neuro: Alert and responsive, No focal deficits noted Abdomen: Soft, Non-Tender Skin: No rashes noted on visualized skin Musculoskeletal: No Chest Wall Tenderness Extremities: No Clubbing, No Cyanosis, No Edema, Normal Pulses Results 11/23/16 05:04 11/23/16 05:04 Lab Results 11/24/16 11/25/16 10:47 03:16 APTT 62.6 H 46.5 H Consult Discharge Plan - Plan Referrals: Hansel Ness [Primary Care Provider] -
--- NOTE | 2016-11-25 11:07 | Invasive Diagnostic Lab ---
Name: Vitaliy Breaux Date of Study: 11/24/2016 Date: 1945 Ht: 180.0 cm /70.9 in Medical Record#: [id number] Age: 71 Wt: 78.9 kg / 173.94 lb Account/Order#: [id number] Gender: Male BSA: 1.98 Order #: [id number] Fluoro Dose: 460 mGy BMI: 24.35 Procedure Physician: Giovany Prince MD, [facility] Referring MD: Referring MD: Procedures Performed: LEFT HEART CATH W/ GRAFTS Indications: Non-Stemi Impressions: Severe atherosclerotic coronary artery disease. The left ventricle EF 20% S/P CABG 2 of 2 patent bypass grafts. Suspect myocarditis Recommendations: Optimal medical therapy of patient's disease. Aggressive risk factor modification. Obtain previous EF assessment History/Risk Factors: AFIB RVR Hypertension Dyslipidemia Cerebrovascular disease Chronic Lung Disease Prior NC Previous PCI Date: 07/13/2006 Procedure Access obtained in the right Femoral artery by percutaneous puncture Complications: None, None Contrast: Isovue 77ml Hemodynamics: Pressures Site Systolic/ A Wave Diastolic/ V Wave End Diastolic/ Mean HR AO 140 77 102 79 AO 122 87 104 89 AO 119 85 101 74 AO 118 76 96 73 AO 112 85 98 197 LV 135 11 21 74 LV 119 38 51 50 AO 117 88 99 296 LV Ventriculography Ejection Method: LV Gram Ejection Fraction: 20% Wall Motion: RAMOS Anterobasal Moderate Hypokinesis Anterolateral Severe Hypokinesis Apical: Severe Hypokinesis Inferoapical Severe Hypokinesis Inferobasal Severe Hypokinesis Coronary Dominance: right Lesion Findings/Interventions * Left Main Coronary Artery There is a 30% stenosis in the LMCA. The lesion has a ANN MARIE flow of 3. * Left Anterior Descending There is a 80% stenosis in the Proximal LAD. The lesion has a [place] flow of 3. * Circumflex There is a 20% stenosis in the Proximal Circumflex. The lesion has a ANN MARIE flow of 3. There is a 20% stenosis in the Mid Circumflex. The lesion has a ANN MARIE flow of 3. * Right Coronary Artery There is a 100% stenosis in the Proximal RCA. The lesion has a ANN MARIE flow of 0. (engaged with 3drc) Additional Findings: Grafts * The saphenous vein graft to the Right PDA is patent. ANN MARIE flow is 3. * The left internal mammary graft to the Mid LAD is patent. ANN MARIE flow is 3. Updated by Alicia Breaux RN on 11/24/2016 4:28:54 PM Giovany Prince MD, FACC electronically signed on 11/25/2016 11:03:14 AM with status of Final
[2016-11-25] MEDS: ALPRAZolam 1 MG TABLET PO PRN (11:31)
--- NOTE | 2016-11-25 12:01 | Discharge Summary ---
Date of Encounter: 11/25/16 Time of Encounter: 11:58 - Discharge Diagnosis (1) NSTEMI (non-ST elevated myocardial infarction) Priority: Primary Status: Suspected (2) COPD (chronic obstructive pulmonary disease) Priority: Secondary Status: Suspected Qualifiers: COPD type: emphysema Emphysema type: centrilobular Qualified Code(s): J43.2 - Centrilobular emphysema (3) CAD (coronary artery disease) Priority: Secondary Status: Chronic Qualifiers: Coronary Disease-Associated Artery/Lesion type: [place] artery [place] vs. transplanted heart: [place] heart Associated angina: without angina Qualified Code(s): I25.10 - Atherosclerotic heart disease of [place] coronary artery without angina pectoris (4) Essential hypertension Priority: Secondary Status: Chronic (5) Atrial fibrillation with RVR Priority: Secondary Status: Deleted - Discharge Medications Prescriptions: Albuterol Neb [AccuNeb] 0.63 mg IH Q2HR PRN #5 mls PRN Reason: Shortness Of Breath Furosemide [Lasix] 20 mg PO DAILY #30 tablet Nebulizer [Aeroeclipse] 1 each MC DAILY #1 each Potassium Chloride 10 meq PO DAILY #30 tab.er.prt Home Medications: ALPRAZolam [Xanax 1 MG Tablet] 1 mg PO TID PRN 10/29/15 [History] Aspirin [Adult Low Dose Aspirin EC] 81 mg PO DAILY 10/29/15 [History] Atorvastatin Calcium [Lipitor] 80 mg PO HS 10/29/15 [History] Carvedilol [Coreg] 3.125 mg PO BID 10/29/15 [History] Clopidogrel [Plavix] 75 mg PO DAILY 10/29/15 [History] Lisinopril [Zestril] 10 mg PO DAILY 10/29/15 [History] Nitroglycerin [Nitrostat] 0.4 mg SL PRN PRN MDD 3 10/29/15 [History] Oxycodone HCl/Acetaminophen [Percocet 10-325 mg Tablet] 1 tab PO QID PRN [History] Levothyroxine [Synthroid] 50 mcg PO 0630 #30 tablet 10/31/15 [Rx] predniSONE [PredniSONE] 60 mg PO DAILY #30 tablet 01/22/16 [Rx] Pregabalin [Lyrica] 150 mg PO BID PRN 11/23/16 [History] Albuterol Neb [AccuNeb] 0.63 mg IH Q2HR PRN #5 mls 11/25/16 [Rx] Furosemide [Lasix] 20 mg PO DAILY #30 tablet 11/25/16 [Rx] Nebulizer [Aeroeclipse] 1 each MC DAILY #1 each 11/25/16 [Rx] Potassium Chloride 10 meq PO DAILY #30 tab.er.prt 11/25/16 [Rx] Allergies/Adverse Reactions: Allergies No Known Allergies Allergy (Verified 11/23/16 15:40) Procedures/tests Complete & Pending: Procedures Performed prior 72 hours Category Date Time Status CL Cardiac Catheterization [CL] Routine Tube Draw Helper 11/24/16 13:00 Completed ECG 12 lead ECG [ECG] Routine Y 11/23/16 13:01 Completed EV echocardiogram Routine Y 11/23/16 08:34 Completed Date of admission: 11/23/16 07:29 Primary care physician: Hansel Ness Consults: 11/23/16 12:36 Consult to Cardiology [CONS] Stat Comment: Consulting Provider: Cardiology Sandy Reason for Consult: NSTEMI Time Notified: 12:38 Call Completed: Yes 11/24/16 12:54 Consult to Cardiac Rehabilitation-Phase1 [CONS] Routine Comment: Reason for Consult: NSTEMI, CHF Call Completed: No Discharging clinician: Zenobia Vargas Anticipated date of discharge: 11/25/16 - Patient Status Disposition: Home, Self-Care Condition: Fair Functional capacity at discharge: independent ambulation Overall status at discharge: patient is back to baseline - Discharge Instructions Instructions: Furosemide (By mouth), Potassium Chloride (By mouth), Chronic Kidney Disease (DC), Chronic Kidney Disease (GEN), Hypothyroidism (DC), Chronic Hypertension (DC), Cigarette Smoking and Your Health, Media Associate (GEN) Follow Up With: Hansel Ness [Primary Care Provider] - (CALL AND SCHEDULE AN APPT FOR 10 DAYS. ) Seth Gallegos DO [Partnered Physician] - Additional Instructions: CALL YOUR PRIMARY CARE PHYSICIAN FOR AN APPT IN 10 DAYS. CALL THE CARDIOLOGY [facility] TO SCHEDULE AN APPT FOR THE ECHOCARDIAGRAM. - Diet and Activity Activity: resume usual activities as tolerated Diet: low fat, low cholesterol, other (cardiac diet) Interval History: 79 yo M PMhx CHF, Afib,HTN, CKD3 s/p CABG and stent placement presented with c/ o heart palpitations in Afib RVR with troponin elevations, placed on heparin drip underwent cardiac catheterization . cardio was consulted. HE had ECHO with EF 30%, left ventricular systolic and diastolic dysfunction, mitral and tricuspid regurgitation and mild pulm htn EKG with Afib RVR, PVC, LBBB Underwent Cardiac catheterization showing patent stents, patent LEBLANC bypass, circumflex with non-obstructing disease This is new onset systolic heart failure , CMP ? etiology. Bypasses patent. ? recent viral syndrome with associated myocarditis/troponin elevation (pt reports urine infection, cough few weeks ago). - Recommend continue aspirin/statin/Coreg/Plavix therapy as per cardio - Currently, euvolemic. CKD noted. will dc on low dose lasix for now. Consider ACEi in future if Cr remains stable. - Repeat echocardiogram in 3 months. If EF remains < 35%, consider ICD therapy. all EKGs and tele strips reviewed, patient with atrial tachycardia and frequent PACs seen, no evidence of afib appreciated PACs, periods of atrial tachcyardia. - Computer interpretation of ECG was AF - sinus with atrial tachycardia and PACs noted. - No need for heparin/full PO AC. - Continue BB therapy adn aspirin patinet is being dc in stable condition today and will f/u with cadio with repeat ECHO Hospital course: Mr. Breaux is a 71 year old male - Time Spent with Patient Total time spent providing and/or coordinating discharge services: - Constitutional Vitals: Temp Pulse Resp BP Pulse Ox 97.9 F 74 16 141/73 97 11/25/16 04:25 11/25/16 07:00 11/25/16 11:10 11/25/16 07:00 11/25/16 11:10 General appearance: Present: cooperative, A&O X 3, pleasant, answers questions appropriately Exam: HEENT: Atraumatic, Normocephaly, Mucus Membranes Moist Neck: No JVD, Normal carotid pulses Cardiac: No Murmur, Other (irregular) Lungs:b/l lcear Neuro: Alert and responsive, No focal deficits noted Abdomen: Soft, Non-Tender Skin: No rashes noted on visualized skin Musculoskeletal: No Chest Wall Tenderness Extremities: No Clubbing, No Cyanosis, No Edema, Normal Pulses
--- NOTE | 2016-11-25 15:03 | Electrocardiograph Report ---
[place] [address] Test Date: 2016-11-25 Pat Name: Vitaliy rBeaux Department: 111 Room: 2NE23 Gender: M Journeyman Electrician: CESAR : 1945 Requested By: Neil Rangel Order Number: [id number] Reading MD: Giovany Prince MD Measurements Intervals [place] Rate: 83 P: MA: 0 QRS: 14 QRSD: 149 T: 178 QT: 444 QTc: 483 Interpretive Statements SINUS RHYTHM WITH PACS AND PVC LEFT BUNDLE BRANCH BLOCK Electronically Signed On 11-25-2016 15:01:48 EDT by Giovany Prince MD
== END 2016-11-25 14:00 | disposition home or self-care (01) | DRG 280 ==
LOC: 2NENU 04:48 → EMEROO 04:48 → 2NENU 07:10
PROVIDERS: ADMIT Pediatrics; ATTEND Internal Medicine

== ENCOUNTER 2016-12-04 04:25 | Inpatient (IN) ==
[2016-12-04] MEDS ORDERED: methylPREDNISolone 125 MG/2 ML VIAL IVP ONE (04:32)
[2016-12-04] MEDS ORDERED: Ipratropium/Albuterol Neb 3 ML IH ONE (04:32)
--- NOTE | 2016-12-04 04:56 | Emergency Department Note ---
Disposition Clinical Impression: Elevated troponin Acute exacerbation of CHF (congestive heart failure) Qualifiers: Congestive heart failure type: systolic Qualified Code(s): I50.23 - Acute on chronic systolic (congestive) heart failure Disposition: Admitted As Inpatient Condition: Critical Referrals: NO,PCP [Primary Care Provider] - Time of Disposition: 07:25 SOB HPI - General Chief Complaint: ED Shortness of Breath/Dyspnea Stated Complaint: short of breath Time Seen by Provider: 12/04/16 04:32 Nursing Notes Reviewed: Yes Vital Signs Reviewed: Yes - History of Present Illness Mr. Breaux, 71-year-old male, presents from home via EMS with chief complaint of shortness of breath. Onset today and progressive. Not improved with his albuterol rescue inhaler. Patient does have a history of COPD but does not use oxygen at home at baseline. He is followed by [place] [facility]. Patient was admitted to this facility, discharged 11/26/16 with NSTEMI. PMH: Is clearly less than 2 weeks ago. History CABG. COPD. Hypertension. A. fib with RVR. Anticoagulation: None Antiplatelet: Aspirin, Plavix ROS: Positive: Shortness of breath, cough which is unchanged from his baseline Negative: Fever, chills, chest pains, palpitations, nausea, vomiting, abdominal pains, dizziness, unusual weakness. - Related Data Home Medications Medication Instructions Recorded Confirmed ALPRAZolam [Xanax 1 MG Tablet] 1 mg PO TID PRN 10/29/15 11/23/16 Aspirin [Adult Low Dose Aspirin EC] 81 mg PO DAILY 10/29/15 11/23/16 Atorvastatin Calcium [Lipitor] 80 mg PO HS 10/29/15 11/23/16 Carvedilol [Coreg] 3.125 mg PO BID 10/29/15 11/23/16 Clopidogrel [Plavix] 75 mg PO DAILY 10/29/15 11/23/16 Lisinopril [Zestril] 10 mg PO DAILY 10/29/15 11/23/16 Nitroglycerin [Nitrostat] 0.4 mg SL PRN PRN MDD 3 10/29/15 11/23/16 Oxycodone HCl/Acetaminophen 1 tab PO QID PRN 10/29/15 11/23/16 [Percocet 10-325 mg Tablet] Pregabalin [Lyrica] 150 mg PO BID PRN 11/23/16 11/23/16 Previous Rx's Medication Instructions Recorded Levothyroxine [Synthroid] 50 mcg PO 0630 #30 tablet 10/31/15 predniSONE [PredniSONE] 60 mg PO DAILY #30 tablet 01/22/16 Albuterol Neb [AccuNeb] 0.63 mg IH Q2HR PRN #5 mls 11/25/16 Furosemide [Lasix] 20 mg PO DAILY #30 tablet 11/25/16 Nebulizer [Aeroeclipse] 1 each MC DAILY #1 each 11/25/16 Potassium Chloride 10 meq PO DAILY #30 tab.er.prt 11/25/16 Allergies Allergy/AdvReac Type Severity Reaction Status Date / Time No Known Allergies Allergy Verified 11/23/16 15:40 All systems ED: reviewed and negative except as stated. Past Medical History - Past Medical History Medical history: Reports: atrial fibrillation, COPD, coronary artery disease, CVA, myocardial infarction, other Surgical history: Reports: carotid endarterectomy, coronary bypass (CABG) Psychiatric history: Reports: no psych history - Social History Smoking Status: Current some day smoker Smokeless Tobacco Status: No Alcohol use: Reports: none Drug use: Reports: none Physical Exam Vital Signs Reviewed: Afebrile, not tachypneic, not tachycardic, and not hypoxic on 3 L via nasal cannula. General: Patient is alert, oriented, and in no acute distress. HEENT: No facial asymmetry. Head is normocephalic and atraumatic. Trachea midline. Cardiovascular: Heart regular rate and rhythm without clicks, rubs, gallops, or murmurs. No JVD. PMI nondisplaced. Bilateral radial pulses 2/4. Respiratory: Symmetric chest rise with poor respiratory effort. Prolonged expiratory phase. Bilateral breath sounds have diffuse wheezing without crackles or rhonchi. Abdomen: Bowel sounds present normoactive x-4 quadrants. Abdomen is soft, nondistended, and nontender. Psych: Patient's affect is appropriate for situation. Course Course Narrative: Patient received 324 mg aspirin prior to arrival PCI of 11/24/2016: 80% stenosis of proximal LAD. Interpreted stenosis of proximal RCA. Saphenous vein graft to right PDA is patent. Left internal mammary graft to the mid LAD is patent. LVEF 20%. Per EMS, patient's O2 sats were in the low 80s on room air. He improved to low 90s on 4 L nasal cannula. In our department, patient was 88-90% on 4 L nasal cannula. Chest x-ray was concerning for acute exacerbation of congestive heart failure. Patient placed on BiPAP after which his O2 saturations jumped to 95%. Given that he has no oxygen at home and was saturating for a nasal cannula, patient agrees to admission for continued BiPAP and management. 07:15 Spoke with the admitting hospitalist, Dr. Valentin, who agrees to accept the patient. Vital Signs Temperature 98.1 F 12/04/16 04:31 Pulse Rate 92 12/04/16 04:31 Respiratory Rate 16 12/04/16 04:31 Blood Pressure 153/90 12/04/16 04:31 O2 Sat by Pulse Oximetry 96 12/04/16 04:31 Temperature 98.1 F 12/04/16 04:31 Pulse Rate 87 12/04/16 06:52 Respiratory Rate 16 12/04/16 06:52 Blood Pressure 150/70 12/04/16 06:52 O2 Sat by Pulse Oximetry 95 12/04/16 06:52 Oxygen Delivery Oxygen Delivery Bipap Shortness of Breath/Dyspnea - Lab Data Result diagrams: 12/04/16 05:10 12/04/16 05:10 Lab Results 12/04/16 12/04/16 12/04/16 Range/Units 05:10 05:10 05:10 WBC 11.7 H (4.3-11.1) K/mcL RBC 4.27 (4.19-5.50) M/mcL Hgb 12.6 L (12.9-16.9) g/dL Hct 37.8 (37.5-50.1) % MCV 88.5 (83.0-100.0) fL MCH 29.5 (28.0-33.3) pg MCHC 33.3 (31.6-35.5) g/dL RDW 13.2 (11.5-14.5) % Plt Count 310 (140-400) K/mcL MPV 9.7 (9.4-12.4) fL Immature Gran % 0.4 (0-4) % Seg Neutrophils % 82.1 % Lymphocytes % 10.0 % Monocytes % 6.7 % Eosinophils % 0.5 % Basophils % 0.3 % Neutrophils # 9.6 H (1.6-8.9) K/mcL Lymphocytes # 1.2 (0.6-4.6) K/mcL Monocytes # 0.8 (0.0-1.3) K/mcL Eosinophils # 0.1 (0.0-0.6) K/mcL Basophils # 0.0 (0.0-0.2) K/mcL Sodium 134 L (136-145) mEq/L Potassium 4.6 H (3.5-4.5) mEq/L Chloride 101 (98-109) mEq/L Carbon Dioxide 22 (19-29) mEq/L BUN 33 H (8-26) mg/dL Creatinine 2.13 H (0.72-1.25) mg/dL Est GFR ( Amer) 37 L (> 60) Est GFR (Non-Af Amer) 31 L (> 60) BUN/Creatinine Ratio 15 (6-26) Glucose 133 H (70-99) mg/dL Calculated Osmolality 287 (280-300) Calcium 8.7 (8.6-10.8) mg/dL Troponin I 0.20 H* (0-0.03) ng/mL B-Natriuretic Peptide (0-100) pg/mL 12/04/16 Range/Units 05:10 WBC (4.3-11.1) K/mcL RBC (4.19-5.50) M/mcL Hgb (12.9-16.9) g/dL Hct (37.5-50.1) % MCV (83.0-100.0) fL MCH (28.0-33.3) pg MCHC (31.6-35.5) g/dL RDW (11.5-14.5) % Plt Count (140-400) K/mcL MPV (9.4-12.4) fL Immature Gran % (0-4) % Seg Neutrophils % % Lymphocytes % % Monocytes % % Eosinophils % % Basophils % % Neutrophils # (1.6-8.9) K/mcL Lymphocytes # (0.6-4.6) K/mcL Monocytes # (0.0-1.3) K/mcL Eosinophils # (0.0-0.6) K/mcL Basophils # (0.0-0.2) K/mcL Sodium (136-145) mEq/L Potassium (3.5-4.5) mEq/L Chloride (98-109) mEq/L Carbon Dioxide (19-29) mEq/L BUN (8-26) mg/dL Creatinine (0.72-1.25) mg/dL Est GFR ( Amer) (> 60) Est GFR (Non-Af Amer) (> 60) BUN/Creatinine Ratio (6-26) Glucose (70-99) mg/dL Calculated Osmolality (280-300) Calcium (8.6-10.8) mg/dL Troponin I (0-0.03) ng/mL B-Natriuretic Peptide 2845 H (0-100) pg/mL Attestation Statement - Attestation Attestation: I, Larry Saba MD, personally evaluated this patient and discussed their management with the resident physician. I reviewed the resident's note and agree with the documented findings, medical decision making, and plan of care. 71-year-old male presents to the emergency department by embolus with a complaint of acute shortness of breath that started about one hour prior to arrival. Patient has a history of recurrent episodes of this shortness of breath. He states that he gets scared and anxious which makes it worse. He is not on home oxygen. He was just admitted here about 10 days ago with a non- STEMI and had a cardiac catheter. He denies any chest pain tonight just shortness of breath. On examination patient is a well-developed well-nourished elderly male in no acute distress. He is alert and oriented 3. There is no cyanosis or diaphoresis. He does appear very anxious. Breath sounds are decreased but equal bilaterally with no rales or wheezes noted. Heart regular with a mild tachycardia. Abdomen is soft and nontender with normal bowel sounds. Chest x-ray shows increased pulmonary edema with superimposed infiltrate distant was CHF. Labs reviewed. Troponin 0.20. BNP 2800. EKG shows sinus tachycardia with intraventricular conduction delay. No significant change from prior EKG other than increased ST depression in V5 and V6. Patient was placed on BiPAP. The hospitalist was consulted for admission.
[2016-12-04 05:28] LABS: Basophils % 0.3 %; Eosinophils # 0.1 K/mcL (0.0-0.6); Eosinophils % 0.5 %; Hematocrit 37.8 % (37.5-50.1); Hemoglobin 12.6 g/dL (12.9-16.9); Immature Granulocytes % 0.4 % (0-4); Lymphocytes # 1.2 K/mcL (0.6-4.6); Mean Corpuscular HGB Conc 33.3 g/dL (31.6-35.5); Mean Corpuscular Hemoglobin 29.5 pg (28.0-33.3); Mean Corpuscular Volume 88.5 fL (83.0-100.0); Mean Platelet Volume 9.7 fL (9.4-12.4); Monocytes # 0.8 K/mcL (0.0-1.3); Monocytes % 6.7 %; Neutrophils # 9.6 K/mcL (1.6-8.9); Platelet Count 310 K/mcL (140-400); Red Blood Count 4.27 M/mcL (4.19-5.50); Red Cell Distribution Width 13.2 % (11.5-14.5); Segmented Neutrophils % 82.1 %
[2016-12-04 05:40] LABS: Calcium 8.7 mg/dL (8.6-10.8); Potassium 4.6 mEq/L (3.5-4.5)
[2016-12-04] MEDS ORDERED: Furosemide 40 MG/4 ML VIAL IVP ONE (06:32)
[2016-12-04] MEDS ORDERED: ALPRAZolam 1 MG TABLET PO ONE (07:38)
[2016-12-04] MEDS ORDERED: Pregabalin 75 MG CAPSULE PO PRN (07:48)
[2016-12-04] MEDS ORDERED: Nitroglycerin 0.4 MG TAB.SUBL SL SCH (07:48)
[2016-12-04] MEDS ORDERED: Naloxone 0.4 MG/ML INJ IVP PRN (07:53)
[2016-12-04] MEDS ORDERED: *HR* Morphine 2 MG/ML SYRINGE IVP PRN (07:53)
[2016-12-04] MEDS ORDERED: Ondansetron 4 MG/2 ML VIAL IVP PRN (07:53)
[2016-12-04] MEDS ORDERED: Acetaminophen 325 MG TABLET PO PRN (07:53)
--- NOTE | 2016-12-04 08:00 | Internal Med History&Physical ---
Date of Encounter: 12/04/16 Time of Encounter: 07:57 Assessment and Plan (1) Acute respiratory failure with hypoxia Current visit: Yes Status: Acute Acute hypoxic respiratory failure secondary to combination of acute systolic and diastolic CHF exacerbation/acute COPD exacerbation due to healthcare associated pneumonia present upon admission Continue strict I's and O's, daily weight, Lasix IV 40 mg twice a day Start cefepime, consider starting vancomycin if blood pressure drops Continue Solu-Medrol, DuoNeb's oxygen therapy and BiPAP as needed Omeprazole for GI prophylaxis and Lovenox for DVT prophylaxis. Patient will be admitted as inpatient. Expected to stay more than 2 midnights. Full code. Time spent on this admission 40 minutes (2) Acute exacerbation of CHF (congestive heart failure) Current visit: Yes Status: Acute Qualifiers: Congestive heart failure type: combined Qualified Code(s): I50.43 - Acute on chronic combined systolic (congestive) and diastolic (congestive) heart failure (3) Elevated troponin Current visit: Yes Status: Acute Likely secondary to demand ischemia (4) Hypothyroidism Current visit: No Status: Acute Continue levothyroxine Qualifiers: Hypothyroidism type: unspecified Qualified Code(s): E03.9 - Hypothyroidism , unspecified (5) Tobacco abuse Current visit: No Status: Acute Smoking cessation counseling given for 5 min . Nicotine patch ordered (6) CAD (coronary artery disease) Current visit: No Status: Chronic Qualifiers: Coronary Disease-Associated Artery/Lesion type: bypass graft [place] vs. transplanted heart: [place] heart Associated angina: without angina Qualified Code(s): I25.810 - Atherosclerosis of coronary artery bypass graft(s) without angina pectoris (7) Chronic kidney disease, stage III (moderate) Current visit: No Status: Chronic (8) COPD (chronic obstructive pulmonary disease) Current visit: No Status: Suspected Qualifiers: COPD type: emphysema Emphysema type: centrilobular Qualified Code(s): J43.2 - Centrilobular emphysema Internal Medicine - H&P: HPI Chief complaint: Shortness of breath Admitted From: Emergency Dept History of present illness: Mr. Breaux is a 71 year old male recently discharged less than 10 days ago from this hospital where he was admitted for non-STEMI and new onset CHF, has history of COPD not oxygen dependent, systolic and diastolic CHF with an ejection fraction of 30%, had a cardiac catheterization during past admission, no stents were placed as the patient has history of CABG in has history of prior stents that were patent, he is on aspirin and Plavix, was discharged on 20 mg of Lasix. He was brought by the EMS this time saturating in the low 80s, had to be started on a BiPAP the emergency room a chest x-ray shows acute pulmonary edema with also a right lower lobe infiltrate and a right small pleural effusion. The patient has been bringing up some yellowish phlegm, denies any fevers. His creatinine is 2.13. His baseline. White blood cell count is 11.7 troponin 0.2 BNP is 2845. Blood pressure is 153/90. He feels very weak and is feeling less short of breath after receiving Solu-Medrol Lasix , is currently on 4 L of oxygen and does not use oxygen at home. Past Med Surg Social Fam HX - Past Medical History Medical history: atrial fibrillation (Not on anticoagulation), CHF (Systolic and diastolic with an ejection fraction of 30%), COPD (Not oxygen dependent), coronary artery disease (History of stents and CABG), CVA, myocardial infarction , other (Non-STEMI, chronic kidney disease stage III, neuropathy, tobacco use, hypothyroidism, anxiety, atrial fibrillation with RVR) Psychiatric history: no psych history - Past Surgical History Surgical History: appendectomy, carotid endarterectomy, coronary bypass (CABG), other (Cardiac catheterization) - Social History Smoking Status: Current some day smoker Packs per day: One pack per week Smokeless Tobacco Status: No Alcohol use: none Drug use: none - Family History Mother Living Status: Hx Family Cardiac Disorders: Yes Father Living Status: Hx Family Cardiac Disorders: Yes Hx Family Respiratory Disorders: Yes - Additional Family History Additional family history: Father and mother with CAD/infarctions in their 60s Internal Medicine - H&P: Meds ALPRAZolam [Xanax 1 MG Tablet] 1 mg PO TID PRN 10/29/15 [History] Aspirin [Adult Low Dose Aspirin EC] 81 mg PO DAILY 10/29/15 [History] Atorvastatin Calcium [Lipitor] 80 mg PO HS 10/29/15 [History] Carvedilol [Coreg] 3.125 mg PO BID 10/29/15 [History] Clopidogrel [Plavix] 75 mg PO DAILY 10/29/15 [History] Lisinopril [Zestril] 10 mg PO DAILY 10/29/15 [History] Nitroglycerin [Nitrostat] 0.4 mg SL PRN PRN MDD 3 10/29/15 [History] Oxycodone HCl/Acetaminophen [Percocet 10-325 mg Tablet] 1 tab PO QID PRN [History] Levothyroxine [Synthroid] 50 mcg PO 0630 #30 tablet 10/31/15 [Rx] Pregabalin [Lyrica] 150 mg PO BID PRN 11/23/16 [History] Albuterol Neb [AccuNeb] 0.63 mg IH Q2HR PRN #5 mls 11/25/16 [Rx] Furosemide [Lasix] 20 mg PO DAILY #30 tablet 11/25/16 [Rx] Potassium Chloride 10 meq PO DAILY #30 tab.er.prt 11/25/16 [Rx] Allergies No Known Allergies Allergy (Verified 11/23/16 15:40) All Systems PM: A 10-system review of systems was performed and is negative for pertinent findings except as documented above in the HPI. Review of systems: Discharge of breath, no chest pain. Other systems out of the 10 reviewed were negative - Constitutional Vitals: Temp Pulse Resp BP Pulse Ox 98.1 F 87 16 150/70 95 12/04/16 04:31 12/04/16 06:52 12/04/16 06:52 12/04/16 06:52 12/04/16 06:52 General appearance: Present: A&O X 3 - Head Head exam: Present: atraumatic, normocephalic - Eye Eye exam: Present: PERRL, conjuntiva pink, sclera anicteric Pupils: Present: PERRL - Neck Neck exam general surgery: Present: supple, trachea midline. Absent: lymphadenopathy - Respiratory Respiratory exam: Present: CTAB, rales (Muscular crackles in the right with mild wheezing), wheezes. Absent: accessory muscle use, rhonchi - Cardiovascular Cardiovascular exam: Present: RRR, +S1, +S2. Absent: diastolic murmur, gallop, rubs, systolic murmur - GI/Abdominal GI/Abdominal exam: Present: normal bowel sounds, soft, no peritoneal signs. Absent: distended, tenderness - Extremities Exam Extremities exam: Present: warm, radial pulses palpable and symetrical. Absent : calf tenderness, cyanotic, pedal edema - Neurological Exam Neurological exam: Present: CN II-XII intact, oriented X3, no focal deficits. Absent: pronater drift, facial droop, speech deficit - Skin Skin exam: Present: dry, intact Internal Med - H&P Results - Labs CBC & Chem 7: 12/04/16 05:10 12/04/16 05:10
[2016-12-04] MEDS ORDERED: Nitroglycerin 0.4 MG TAB.SUBL SL PRN (08:46)
[2016-12-04] MEDS: MethylPREDNISolone 40 MG/ML VIAL IVP SCH ×2 (08:50→16:29)
[2016-12-04] MEDS: Furosemide 40 MG/4 ML VIAL IVP SCH ×2 (08:50→22:44)
[2016-12-04] MEDS: Cefepime HCl 1,000 MG in D5% in Water (Mini-Bag+) 100 ML IVPB SCH ×2 (08:51→22:44)
[2016-12-04] MEDS: Aspirin Enteric Coated 81 MG Tablet PO SCH (08:51)
[2016-12-04] MEDS: Nicotine 14 MG PATCH.TD24 TD SCH (08:52)
[2016-12-04] MEDS: *HR* OxyCODONE/APAP 10/325 TABLET PO PRN ×2 (08:58→17:40)
[2016-12-04] MEDS: Ipratropium/Albuterol Neb 3 ML IH SCH ×3 (10:35→21:33)
--- NOTE | 2016-12-04 13:07 | Electrocardiograph Report ---
[place] [id number] Test Date: 2016-12-04 Pat Name: Vitaliy Breaux Department: 104 Room: 2A25 Gender: M [employer]: : 1945 Requested By: Justo Mejias Order Number: [id number] Reading MD: Giovany Prince MD Measurements Intervals [place] Rate: 102 P: 48 [place]: 139 QRS: 21 QRSD: 153 T: 231 QT: 374 QTc: 432 Interpretive Statements SINUS TACHYCARDIA LEFT ATRIAL ENLARGEMENT LVCD consider atypical LBBB BASELINE ARTIFACT Electronically Signed On 12-04-2016 13:05:37 EDT by Giovany Prince MD
[2016-12-04] MEDS: ALPRAZolam 1 MG TABLET PO PRN (22:41)
[2016-12-05] MEDS: MethylPREDNISolone 40 MG/ML VIAL IVP SCH ×4 (00:54→23:22)
[2016-12-05] MEDS: Ipratropium/Albuterol Neb 3 ML IH SCH ×4 (03:50→21:38)
[2016-12-05 05:08] LABS: Hematocrit 32.8 % (37.5-50.1); Mean Corpuscular HGB Conc 33.5 g/dL (31.6-35.5); Mean Corpuscular Hemoglobin 30.1 pg (28.0-33.3); Mean Corpuscular Volume 89.9 fL (83.0-100.0); Mean Platelet Volume 10.4 fL (9.4-12.4); Platelet Count 260 K/mcL (140-400); Red Blood Count 3.65 M/mcL (4.19-5.50); Red Cell Distribution Width 13.2 % (11.5-14.5)
[2016-12-05 05:24] LABS: Calcium 8.2 mg/dL (8.6-10.8); Potassium 4.6 mEq/L (3.5-4.5)
[2016-12-05] MEDS: *HR* Enoxaparin 30 MG/0.3 ML SYRINGE SQ SCH (06:11)
[2016-12-05] MEDS: *HR* OxyCODONE/APAP 10/325 TABLET PO PRN ×3 (06:18→22:37)
[2016-12-05] MEDS: Aspirin Enteric Coated 81 MG Tablet PO SCH (08:39)
[2016-12-05] MEDS: Cefepime HCl 1,000 MG in D5% in Water (Mini-Bag+) 100 ML IVPB SCH ×2 (08:39→20:10)
[2016-12-05] MEDS: Nicotine 14 MG PATCH.TD24 TD SCH (08:44)
[2016-12-05] MEDS: Furosemide 40 MG/4 ML VIAL IVP SCH ×2 (08:45→22:38)
[2016-12-05] MEDS: ALPRAZolam 1 MG TABLET PO PRN ×3 (09:22→22:37)
--- NOTE | 2016-12-05 13:39 | Internal Med Progress Note ---
Date of Encounter: 12/05/16 Time of Encounter: 13:38 - Assessment and plan (1) Acute exacerbation of CHF (congestive heart failure) Current Visit: Yes Status: Acute Assessment and plan: Patient has elevated BNP and chest X ray findings consistent with CHF exacerbation. Per chart review his echo LVEF was 30% on 11/26/2016. He has combined systolic and diastolic dysfunction. He had a cardiac catheterization which showed patent CABG grafts. We will treat this with Lasix 40 mg twice a day. Qualifiers: Congestive heart failure type: combined Qualified Code(s): I50.43 - Acute on chronic combined systolic (congestive) and diastolic (congestive) heart failure (2) Acute respiratory failure with hypoxia Current Visit: Yes Status: Acute (3) Right lower lobe pneumonia Current Visit: Yes Status: Acute Assessment and plan: Patient has recurrent hospitalizations, we will treat as healthcare associated pneumonia with vancomycin and Levaquin. Follow-up blood cultures. Obtain sputum culture. Oxygen by nasal cannula. Qualifiers: Pneumonia type: due to unspecified organism Qualified Code(s): J18.1 - Lobar pneumonia, unspecified organism (4) COPD exacerbation Current Visit: Yes Status: Acute Assessment and plan: Patient has clear lung sounds today. No wheezing. Likely mild exacerbation. He was started on IV steroids. We will continue this and switch to oral prednisone tomorrow. (5) DVT prophylaxis Current Visit: No Status: Acute Assessment and plan: On Lovenox. (6) Hypothyroidism Current Visit: No Status: Acute Assessment and plan: Patient has a history of myxedema coma, clinically he appears euthyroid. However he does have CHF exacerbation. His TSH was elevated to 18 and 3 days ago. We will check free T4 and T3. Continue with levothyroxine. Qualifiers: Hypothyroidism type: unspecified Qualified Code(s): E03.9 - Hypothyroidism , unspecified - Subjective Interval history: 12/05/2016: Patient presented to the hospital with gradual onset of severe shortness of breath over the last 2 days. This has become severe over the last 24 hours, associated with cough productive of yellow sputum, denies associated chest pain and fever. He says that shortness of breath has significantly improved overnight denies nausea vomiting. - Constitutional Vitals: Temp Pulse Resp BP Pulse Ox 97.8 F 64 14 83/40 95 12/05/16 11:15 12/05/16 11:15 12/05/16 11:15 12/05/16 11:15 12/05/16 11:15 General appearance: Present: A&O X 3 - Eye Eye exam: Present: PERRL, conjuntiva pink, sclera anicteric Pupils: Present: PERRL - Respiratory Respiratory exam: Present: CTAB. Absent: accessory muscle use, rales, rhonchi, wheezes - Cardiovascular Cardiovascular exam: Present: RRR, +S1, +S2. Absent: diastolic murmur, gallop, rubs, systolic murmur - GI/Abdominal GI/Abdominal exam: Present: normal bowel sounds, soft, no peritoneal signs. Absent: distended, tenderness - Extremities Exam Extremities exam: Present: warm, radial pulses palpable and symetrical. Absent : calf tenderness, cyanotic, pedal edema - Skin Skin exam: Present: dry, intact Internal Medicine: Result - Labs CBC & Chem 7: 12/05/16 04:36 12/05/16 04:36 Labs: Short CBC 12/05/16 Range/Units 04:36 WBC 9.8 (4.3-11.1) K/mcL Hgb 11.0 L D (12.9-16.9) g/dL Hct 32.8 L (37.5-50.1) % Plt Count 260 (140-400) K/mcL BMP 12/05/16 04:36 Sodium 131 L Potassium 4.6 H Chloride 95 L Carbon Dioxide 25 BUN 51 H D Creatinine 2.98 H Glucose 126 H Calcium 8.2 L Cardiac Enzymes 12/05/16 Range/Units 08:38 Troponin I 0.12 H* (0-0.03) ng/mL Consult Discharge Plan - Plan Referrals: Dr. Hansel Ness [Other]
[2016-12-06] MEDS: *HR* Enoxaparin 30 MG/0.3 ML SYRINGE SQ SCH (04:05)
[2016-12-06] MEDS: Ipratropium/Albuterol Neb 3 ML IH SCH ×4 (04:39→21:22)
[2016-12-06 05:36] LABS: Thyroid Stimulating Hormone 2.402 mcIU/mL (0.350-4.840); Triiodothyronine (T3) Free 1.41 pg/mL (1.71-3.71)
[2016-12-06] MEDS: MethylPREDNISolone 40 MG/ML VIAL IVP SCH ×2 (09:28→20:50)
[2016-12-06] MEDS: Cefepime HCl 1,000 MG in D5% in Water (Mini-Bag+) 100 ML IVPB SCH (09:28)
[2016-12-06] MEDS: Aspirin Enteric Coated 81 MG Tablet PO SCH (09:29)
[2016-12-06] MEDS: *HR* OxyCODONE/APAP 10/325 TABLET PO PRN ×3 (09:29→21:05)
[2016-12-06] MEDS: ALPRAZolam 1 MG TABLET PO PRN ×3 (09:29→21:05)
[2016-12-06] MEDS: Nicotine 14 MG PATCH.TD24 TD SCH (09:30)
[2016-12-06] MEDS: Furosemide 40 MG/4 ML VIAL IVP SCH ×2 (09:30→20:50)
--- NOTE | 2016-12-06 10:23 | Palliative - Consult Note ---
Date of Encounter: 12/06/16 Time of Encounter: 09:00 - Assessment and Plan (1) Dyspnea Current Visit: No Status: Acute Assessment and plan: Patient reports having dyspnea at rest at home on occasion. He desires home Oxygen and should consider qualifying. He reports having home O2 years ago at home after his CABG. Patient receiving lasix, duonebs, antibiotics and supplemental O2 for dyspnea. Encouraged patient to CDB and position for comfort with HOB up. Bedside IS added and instructed to perform X 10 hourly. Qualifiers: Dyspnea type: dyspnea on exertion Qualified Code(s): R06.09 - Other forms of dyspnea (2) Nicotine addiction Current Visit: Yes Status: Acute Assessment and plan: Patient refused nicoderm patch here. Reports still desires to smoke. Provided extensive patient education related to abuse, nicotine effects on the body related to his heart and lungs. Explained the dangers of using O2 and smoking if he qualifies for O2. Provided education packet as well. Patient verbalized understanding. Qualifiers: Nicotine product type: cigarettes Substance use status: uncomplicated Qualified Code(s): F17.210 - Nicotine dependence, cigarettes, uncomplicated (3) Goals of care, counseling/discussion Current Visit: Yes Status: Acute Assessment and plan: Patient lives at home with Son. Discussed patients current lung and cardiac diagnostic results related to his EF of 30% and SOB at rest. Explained that given these results that patient qualifies for Hospice care. He reports not being ready for that transition but would desire HH to assess his physical status and fluid volume status. Patient on lasix and potassium and I discussed the need to modify diet in relationship to sodium and recording daily weight. Patient open to considering possible HH for PT and reports having living will and DPOA. I requested that Son bring in a copy for EMR. Discussed Code Status. Option A - Full Code Option B - DNRCC -A Option C - DNRCC-A, DNI Patient desires to remain [place] Code for now till he can have further discussions with family. He also has a daughter who lives in [place], [place] I explained that given his health issues that it is important to have desires known to family for GOC can be met. He verbalized understanding. (4) COPD (chronic obstructive pulmonary disease) Current Visit: No Status: Suspected Qualifiers: COPD type: emphysema Emphysema type: centrilobular Qualified Code(s): J43.2 - Centrilobular emphysema (5) Congestive heart failure Current Visit: Yes Status: Suspected Qualifiers: Congestive heart failure type: combined Congestive heart failure chronicity : acute Qualified Code(s): I50.41 - Acute combined systolic (congestive) and diastolic (congestive) heart failure (6) Right lower lobe pneumonia Current Visit: Yes Status: Acute Assessment and plan: Antibiotics, Duonebs and O2. Qualifiers: Pneumonia type: due to unspecified organism Qualified Code(s): J18.1 - Lobar pneumonia, unspecified organism Palliative-CN HPI - Data of Consult Patient: new to practice Consult date: 12/06/16 Requesting Physician: Landen Browne MD Primary Care Provider: PCP NO - Consult Narrative Palliative Care/Comfort Measures: Palliative care Reason for consult: Goals of Care History of present illness: Mr. Breaux is a 71 year old male admitted from home with Exacerbation of COPD. Patients recent ECHO reveals systolic and diastolic HF with an EF 30%. Patient lives with his son and denies using a cane or walker. He reports having dyspnea at rest and using 2 pillows under his head to sleep. he reports having suffered a back and leg injury as well as a CVA years ago that further impacts his ability to sleep flat on his back. Patient is still smoking and denies wanting to quit at present. Recent cardiac catheterization showed patent CABG grafts. This palliative care consult is for goals of care discussion. CC: Landen Browne MD Past Med Surg Social Fam HX - Past Medical History Source: patient, old records reviewed Medical history: atrial fibrillation, CHF, COPD, coronary artery disease, CVA, myocardial infarction, other Psychiatric history: anxiety, depression - Past Surgical History Surgical History: appendectomy, carotid endarterectomy, coronary bypass (CABG), other - Social History Smoking Status: Current some day smoker Packs per day: 1 Smokeless Tobacco Status: No Alcohol use: none Drug use: none Occupational status: unemployed Current living situation: With Family Activity Level: Independent ambulation Recent Out of Country Travel Within the Last 8 Weeks: No Exposure or Possible Exposure to Illness During Travel: No - Family History Mother Living Status: Hx Family Cardiac Disorders: Yes Father Living Status: Hx Family Cardiac Disorders: Yes Hx Family Respiratory Disorders: Yes Medications and Allergies ALPRAZolam [Xanax 1 MG Tablet] 1 mg PO TID PRN 10/29/15 [History] Aspirin [Adult Low Dose Aspirin EC] 81 mg PO DAILY 10/29/15 [History] Atorvastatin Calcium [Lipitor] 80 mg PO HS 10/29/15 [History] Carvedilol [Coreg] 3.125 mg PO BID 10/29/15 [History] Clopidogrel [Plavix] 75 mg PO DAILY 10/29/15 [History] Lisinopril [Zestril] 10 mg PO DAILY 10/29/15 [History] Nitroglycerin [Nitrostat] 0.4 mg SL PRN PRN MDD 3 10/29/15 [History] Oxycodone HCl/Acetaminophen [Percocet 10-325 mg Tablet] 1 tab PO QID PRN [History] Levothyroxine [Synthroid] 50 mcg PO 0630 #30 tablet 10/31/15 [Rx] Pregabalin [Lyrica] 150 mg PO BID PRN 11/23/16 [History] Albuterol Neb [AccuNeb] 0.63 mg IH Q2HR PRN #5 mls 11/25/16 [Rx] Furosemide [Lasix] 20 mg PO DAILY #30 tablet 11/25/16 [Rx] Potassium Chloride 10 meq PO DAILY #30 tab.er.prt 11/25/16 [Rx] Allergies No Known Allergies Allergy (Verified 11/23/16 15:40) All systems: reviewed and no additional remarkable complaints except as stated ( SOB at rest, orthopnea, cough of thick yellow sputum) - Constitutional Constitutional ROS PAL: fatigue - EENT Eyes: requires corrective lenses - Cardiovascular Cardiovascular ROS: dyspnea on exertion, orthopnea - Respiratory Respiratory: cough, dyspnea, dyspnea on exertion - Genitourinary Genitourinary ROS male: urinary frequency - Musculoskeletal Musculoskeletal ROS IM: muscle weakness - Psychiatric Psychiatric general PM: anxiety Palliative Care-Exam - Constitutional Vitals: Temp Pulse Resp BP Pulse Ox 97.5 F L 65 16 95/38 98 12/06/16 07:15 12/06/16 07:15 12/06/16 07:15 12/06/16 07:15 12/06/16 09:00 General appearance: Present: cooperative, no acute distress - Head Head Exam: Present: atraumatic, normal inspection, normocephalic - Eye Eye exam: Present: PERRL Pupils: Present: PERRL - ENT ENT exam: Present: mucous membranes moist - Neck Neck exam: Present: full ROM - Respiratory Respiratory exam: Present: decreased breath sounds - Expanded Respiratory Exam Location: decreased breath sounds: Left, Right, Lower - Cardiovascular Cardiovascular exam: Present: RRR, +S1, +S2 - Expanded Cardiovascular Exam Peripheral pulses: 1+: Femoral (L) PM, Femoral (R) PM, Posterior Tibialis (L), Posterior Tibialis (R), 2+: Carotid (L) PM, Carotid (R) PM, Radial (L), Radial ( R), Dorsalis Pedis (L) PM, Dorsalis Pedis (R) PM - GI/Abdominal Exam GI/Abdominal exam: Present: normal bowel sounds - Rectal Rectal Exam: Present: deferred - External exam: Present: normal external exam (voids per urinal) - Expanded Upper Extremities Exam Elbow exam: Present: full ROM Hand wrist exam: Present: full ROM - Expanded Lower Extremities Exam Hip exam: Present: full ROM - Neurological Exam Neurological exam: Present: alert, CN II-XII intact - Expanded Neurological Exam Coma Scale Eye Opening: Spontaneous Coma Scale Motor Response: Obeys Commands Coma Scale Verbal Response: Oriented Coma Scale Total: 15 - Psychiatric Psychiatric exam: Present: normal affect - Skin Skin exam: Present: intact, normal color, warm Internal Medicine - CN: Reslt - Labs CBC & Chem 7: 12/05/16 04:36 12/05/16 04:36 Consult Discharge Plan - Plan Referrals: Dr. Hansel Ness [Other] Palliative Quality Palliative Quality: Screen for Code Status: Yes, Screen for Goals of Care: Yes, Screen for Pain: Yes, If Pain Regimen Started, Initiate Bowel Regimen: No, Screen for Nausea/Vomitting: Yes
--- NOTE | 2016-12-06 11:19 | Internal Med Progress Note ---
Date of Encounter: 12/06/16 Time of Encounter: 11:17 - Assessment and plan (1) Acute respiratory failure with hypoxia Current Visit: Yes Status: Acute Assessment and plan: Multifactorial likely secondary to PNA/CHF decompensation/COPD exacerbation pt has history of noncompliance clinically improving Will decrease solumedrol to 40mg IV q12h and begin oral steroids in am continue bronchodilator support monitor O2 sat, O2 sat goal 89-92% continue IV diuresis given clinical presentation of CHF decompensation strict I/Os fluid restriction diet 2D echo from 11/23/16: LVEF 30% with mildly dilated LV and severe global LV systolic dysfunction. Moderal LV diastolic dysfunction will obtain O2 qualification test for home oxygen supplementation Pt was never started on Vanco and Levaquin and clinically improving with Cefepime Will continue Cefepime at this time (2) Acute exacerbation of CHF (congestive heart failure) Current Visit: Yes Status: Acute Assessment and plan: plan as listed above Qualifiers: Congestive heart failure type: combined Qualified Code(s): I50.43 - Acute on chronic combined systolic (congestive) and diastolic (congestive) heart failure (3) CAD (coronary artery disease) Current Visit: No Status: Chronic Assessment and plan: No acute signs of angina present continue home medications Qualifiers: Coronary Disease-Associated Artery/Lesion type: bypass graft [place] vs. transplanted heart: [place] heart Associated angina: without angina Qualified Code(s): I25.810 - Atherosclerosis of coronary artery bypass graft(s) without angina pectoris (4) COPD exacerbation Current Visit: Yes Status: Acute Assessment and plan: plan as listed above (5) [id number] kidney injury Current Visit: Yes Status: Acute Assessment and plan: Likely multifactorial (drug induced/hypotension) will hold lisinopril at this time closely monitor BP hold antihypertensive medications to prevent hypotensive episodes avoid nephrotoxic agents continue to monitor (6) Hypotension Current Visit: No Status: Acute Assessment and plan: Noted to be hypotensive which could be contributing to DOMITILA will hold antihypertensive medications for SBP<120 hold Lisinopril at this time continue to closely monitor Qualifiers: Hypotension type: unspecified hypotension type Qualified Code(s): I95.9 - Hypotension, unspecified (7) Hypothyroidism Current Visit: No Status: Acute Assessment and plan: continue levothyroxine Qualifiers: Hypothyroidism type: unspecified Qualified Code(s): E03.9 - Hypothyroidism , unspecified (8) Right lower lobe pneumonia Current Visit: Yes Status: Acute Assessment and plan: Plan as above Qualifiers: Pneumonia type: due to unspecified organism Qualified Code(s): J18.1 - Lobar pneumonia, unspecified organism (9) Tobacco abuse Current Visit: No Status: Acute Assessment and plan: smoking cessation counseling provided patient not ready to quit at this time refused nicotine replacement therapy (10) DVT prophylaxis Current Visit: No Status: Acute Assessment and plan: On Lovenox SQ - Subjective Interval history: Patient seen and examined at bedside. Resting comfortably in bed. Reports of feeling better and wishes to go home. Pt is educated extensively on the worsening of his renal function and him requiring oxygen support. He states he feels well and would like to go out and smoke a cigarette. Extensive smoking cessation counseling is provided and patient refuses to quit. He refuses nicotine supplementation, states if his cravings for a cigarette gets worst enough he will leave against medical advise. - Constitutional Vitals: Temp Pulse Resp BP Pulse Ox 97.6 F 66 16 106/44 95 12/06/16 11:00 12/06/16 11:00 12/06/16 11:00 12/06/16 11:00 12/06/16 11:00 General appearance: Present: A&O X 3, no acute distress, answers questions appropriately - Head Head exam: Present: atraumatic, normocephalic - Eye Eye exam: Present: normal appearance, conjuntiva pink, sclera anicteric - Respiratory Respiratory exam: Absent: respiratory distress, wheezes (bibasilar wheezing) - Cardiovascular Cardiovascular exam: Present: RRR, +S1, +S2. Absent: diastolic murmur, gallop, rubs, systolic murmur - GI/Abdominal GI/Abdominal exam: Present: normal bowel sounds, soft, no peritoneal signs. Absent: distended, tenderness - Extremities Exam Extremities exam: Present: warm, radial pulses palpable and symetrical. Absent : calf tenderness, cyanotic, pedal edema - Neurological Exam Neurological exam: Present: alert, oriented X3 - Psychiatric Psychiatric exam: Present: normal affect, normal mood Internal Medicine: Result - Labs CBC & Chem 7: 12/05/16 04:36 12/05/16 04:36 Consult Discharge Plan - Plan Referrals: Dr. Hansel Ness [Other]
[2016-12-06] MEDS: Cefepime HCl 2,000 MG in D5% in Water (Mini-Bag+) 100 ML IVPB SCH (20:47)
[2016-12-07] MEDS: *HR* OxyCODONE/APAP 10/325 TABLET PO PRN ×4 (03:20→21:03)
[2016-12-07 03:45] LABS: Hematocrit 32.7 % (37.5-50.1); Hemoglobin 10.5 g/dL (12.9-16.9); Immature Granulocytes % 0.9 % (0-4); Lymphocytes # 0.5 K/mcL (0.6-4.6); Mean Corpuscular HGB Conc 32.1 g/dL (31.6-35.5); Mean Corpuscular Hemoglobin 29.2 pg (28.0-33.3); Mean Corpuscular Volume 91.1 fL (83.0-100.0); Mean Platelet Volume 10.4 fL (9.4-12.4); Monocytes # 0.3 K/mcL (0.0-1.3); Monocytes % 2.6 %; Neutrophils # 9.6 K/mcL (1.6-8.9); Platelet Count 350 K/mcL (140-400); Red Blood Count 3.59 M/mcL (4.19-5.50); Red Cell Distribution Width 13.5 % (11.5-14.5); Segmented Neutrophils % 91.5 %
[2016-12-07 03:59] LABS: Magnesium 2.6 mg/dL (1.6-2.6); Phosphorous 4.4 mg/dL (2.3-4.7); Potassium 5.4 mEq/L (3.5-4.5)
[2016-12-07] MEDS: Ipratropium/Albuterol Neb 3 ML IH SCH ×4 (04:10→21:44)
[2016-12-07] MEDS: *HR* Enoxaparin 30 MG/0.3 ML SYRINGE SQ SCH (05:28)
[2016-12-07] MEDS: ALPRAZolam 1 MG TABLET PO PRN ×3 (08:51→21:04)
[2016-12-07] MEDS: Aspirin Enteric Coated 81 MG Tablet PO SCH (08:51)
[2016-12-07] MEDS: Furosemide 40 MG/4 ML VIAL IVP SCH (08:53)
[2016-12-07] MEDS: MethylPREDNISolone 40 MG/ML VIAL IVP SCH (08:53)
[2016-12-07] MEDS: Nicotine 14 MG PATCH.TD24 TD SCH (08:53)
--- NOTE | 2016-12-07 11:02 | Internal Med Progress Note ---
Date of Encounter: 12/07/16 Time of Encounter: 10:59 - Assessment and plan (1) Acute respiratory failure with hypoxia Current Visit: Yes Status: Acute Assessment and plan: Multifactorial likely secondary to PNA/CHF decompensation/COPD exacerbation pt has history of noncompliance clinically improving Will start Prednisone 40mg PO qd x 7 days continue bronchodilator support monitor O2 sat, O2 sat goal 89-92% continue IV diuresis given clinical presentation of CHF decompensation will decrease Lasix 40mg IV qd from BID strict I/Os fluid restriction diet 2D echo from 11/23/16: LVEF 30% with mildly dilated LV and severe global LV systolic dysfunction. Moderal LV diastolic dysfunction will obtain O2 qualification test for home oxygen supplementation Pt was never started on Vanco and Levaquin and clinically improving with Cefepime Will continue Cefepime at this time (2) Acute exacerbation of CHF (congestive heart failure) Current Visit: Yes Status: Acute Assessment and plan: plan as listed above Qualifiers: Congestive heart failure type: combined Qualified Code(s): I50.43 - Acute on chronic combined systolic (congestive) and diastolic (congestive) heart failure (3) CAD (coronary artery disease) Current Visit: No Status: Chronic Assessment and plan: No acute signs of angina present continue home medications Qualifiers: Coronary Disease-Associated Artery/Lesion type: bypass graft [place] vs. transplanted heart: [place] heart Associated angina: without angina Qualified Code(s): I25.810 - Atherosclerosis of coronary artery bypass graft(s) without angina pectoris (4) COPD exacerbation Current Visit: Yes Status: Acute Assessment and plan: plan as listed above (5) Olplr-xz-yjscmul kidney injury Current Visit: Yes Status: Acute Assessment and plan: Likely multifactorial (drug induced/hypotension) continue to hold lisinopril at this time closely monitor BP hold antihypertensive medications to prevent hypotensive episodes avoid nephrotoxic agents continue to monitor Given worsening renal function, will decrease Lasix to 40mg IV qd and obtain renal US Nephrology eval requested (6) Hypotension Current Visit: No Status: Acute Assessment and plan: BP better improved will hold antihypertensive medications for SBP<120 hold Lisinopril at this time continue to closely monitor Qualifiers: Hypotension type: unspecified hypotension type Qualified Code(s): I95.9 - Hypotension, unspecified (7) Hypothyroidism Current Visit: No Status: Acute Assessment and plan: continue levothyroxine Qualifiers: Hypothyroidism type: unspecified Qualified Code(s): E03.9 - Hypothyroidism , unspecified (8) Right lower lobe pneumonia Current Visit: Yes Status: Acute Assessment and plan: Plan as above Qualifiers: Pneumonia type: due to unspecified organism Qualified Code(s): J18.1 - Lobar pneumonia, unspecified organism (9) Tobacco abuse Current Visit: No Status: Acute Assessment and plan: smoking cessation counseling provided patient not ready to quit at this time refused nicotine replacement therapy (10) DVT prophylaxis Current Visit: No Status: Acute Assessment and plan: Heparin SQ - Subjective Interval history: Patient seen and examined at bedside. Resting comfortably in bed and denies any distress. Reported to have wandered off the floor for over an hour yesterday. Pt counselled against such behavior and states he won't do the same today. Noted to have worsening renal function. Will obtain renal US and consult nephrology. - Constitutional Vitals: Temp Pulse Resp BP Pulse Ox 97.6 F 66 16 102/46 94 12/07/16 06:40 12/07/16 06:40 12/07/16 06:40 12/07/16 06:40 12/07/16 08:53 General appearance: Present: A&O X 3, no acute distress, answers questions appropriately - Head Head exam: Present: atraumatic, normocephalic - Eye Eye exam: Present: normal appearance, conjuntiva pink, sclera anicteric - Respiratory Respiratory exam: Absent: respiratory distress, wheezes (bibasilar crackles) - Cardiovascular Cardiovascular exam: Present: irregular rhythm, +S1, +S2. Absent: diastolic murmur, gallop, rubs, systolic murmur - GI/Abdominal GI/Abdominal exam: Present: normal bowel sounds, soft, no peritoneal signs. Absent: distended, tenderness - Extremities Exam Extremities exam: Present: warm, radial pulses palpable and symetrical. Absent : calf tenderness, cyanotic, pedal edema - Neurological Exam Neurological exam: Present: alert, oriented X3 - Psychiatric Psychiatric exam: Present: normal affect, normal mood Internal Medicine: Result - Labs CBC & Chem 7: 12/07/16 02:59 12/07/16 02:59 Labs: Short CBC 12/07/16 Range/Units 02:59 WBC 10.5 (4.3-11.1) K/mcL Hgb 10.5 L (12.9-16.9) g/dL Hct 32.7 L (37.5-50.1) % Plt Count 350 (140-400) K/mcL Neutrophils # 9.6 H (1.6-8.9) K/mcL [facility] 12/07/16 02:59 Sodium 131 L Potassium 5.4 H Chloride 99 Carbon Dioxide 24 BUN 71 H D Creatinine 3.10 H Glucose 150 H Calcium 8.0 L Consult Discharge Plan - Plan Referrals: Dr. Hansel Ness [Other]
--- NOTE | 2016-12-07 12:30 | Palliative Progress Note ---
Date of Encounter: 12/07/16 Time of Encounter: 10:15 - Assessment and plan (1) Dyspnea Current Visit: Yes Status: Acute Assessment and plan: Patient reports dyspnea has improved. Receiving antibiotics, steroids, duonebs and supplemental O2. Obtaining O2 qualifications. HOB up and CDB. Qualifiers: Dyspnea type: dyspnea on exertion Qualified Code(s): R06.09 - Other forms of dyspnea (2) Nicotine addiction Current Visit: Yes Status: Acute Assessment and plan: Patient still refusing nicoderm patch. Reinforced need to attempt to quit. Patient verbalized understanding. Qualifiers: Nicotine product type: cigarettes Substance use status: uncomplicated Qualified Code(s): F17.210 - Nicotine dependence, cigarettes, uncomplicated (3) Goals of care, counseling/discussion Current Visit: Yes Status: Acute Assessment and plan: Patient still desires medical treatment for COPD and HF. Understands that EF is 30% and need for medical management is required. Discharge plan is to return home in the care of his son. He still desires to remain FULL CODE. Son attempting to locate living will forms. (4) COPD (chronic obstructive pulmonary disease) Current Visit: No Status: Suspected Qualifiers: COPD type: emphysema Emphysema type: centrilobular Qualified Code(s): J43.2 - Centrilobular emphysema (5) Congestive heart failure Current Visit: Yes Status: Suspected Qualifiers: Congestive heart failure type: combined Congestive heart failure chronicity : acute Qualified Code(s): I50.41 - Acute combined systolic (congestive) and diastolic (congestive) heart failure (6) Right lower lobe pneumonia Current Visit: Yes Status: Acute Qualifiers: Pneumonia type: due to unspecified organism Qualified Code(s): J18.1 - Lobar pneumonia, unspecified organism - Time Spent With Patient Total time spent is greater than 50% in coordination of care (as documented) at patient's floor/unit and/or counseling patient: 25 - 35 minutes - Subjective Interval history: Patient up in room. Denies complaints. Reports breathing is getting better. - Constitutional Vitals: Abnormal lab results RBC 3.59 M/mcL (4.19-5.50) L 12/07/16 02:59 Hgb 10.5 g/dL (12.9-16.9) L 12/07/16 02:59 Hct 32.7 % (37.5-50.1) L 12/07/16 02:59 Neutrophils # 9.6 K/mcL (1.6-8.9) H 12/07/16 02:59 Lymphocytes # 0.5 K/mcL (0.6-4.6) L 12/07/16 02:59 Sodium 131 mEq/L (136-145) L 12/07/16 02:59 Potassium 5.4 mEq/L (3.5-4.5) H 12/07/16 02:59 BUN 71 mg/dL (8-26) H D 12/07/16 02:59 Creatinine 3.10 mg/dL (0.72-1.25) H 12/07/16 02:59 Est GFR ( Amer) 24 (> 60) L 12/07/16 02:59 Est GFR (Non-Af Amer) 20 (> 60) L 12/07/16 02:59 Glucose 150 mg/dL (70-99) H 12/07/16 02:59 Calcium 8.0 mg/dL (8.6-10.8) L 12/07/16 02:59 Troponin I 0.12 ng/mL (0-0.03) H* 12/05/16 08:38 B-Natriuretic Peptide 2845 pg/mL (0-100) H 12/04/16 05:10 Free T3 1.41 pg/mL (1.71-3.71) L 12/06/16 04:50 - Head Head exam: Present: atraumatic, normal inspection - Eye Eye exam: Present: PERRL Pupils: Present: PERRL - ENT ENT exam: Present: mucous membranes moist - Neck Neck exam: Present: full ROM - Respiratory Respiratory exam: Present: decreased breath sounds, wheezes - Expanded Respiratory Exam Location: decreased breath sounds: Left, Right, Lower, wheezes: Right, Upper - Cardiovascular Cardiovascular exam: Present: RRR, +S1, +S2 - GI/Abdominal GI/Abdominal exam: Present: normal bowel sounds - Extremities Exam Extremities exam: Present: full ROM - Back Exam Back exam: Present: full ROM - Neurological Exam Neurological exam: Present: alert, CN II-XII intact, oriented X3 - Psychiatric Psychiatric exam: Present: normal affect - Skin Skin exam: Present: pallor, warm Palliative Quality Palliative Quality: Screen for Code Status: Yes, Screen for Goals of Care: Yes, Screen for Pain: Yes, If Pain Regimen Started, Initiate Bowel Regimen: No, Screen for Nausea/Vomitting: Yes - Labs CBC & Chem 7: 12/07/16 02:59 12/07/16 02:59 Labs: Laboratory Results - last 24 hr 12/07/16 12/07/16 02:59 02:59 WBC 10.5 RBC 3.59 L Hgb 10.5 L Hct 32.7 L MCV 91.1 MCH 29.2 MCHC 32.1 RDW 13.5 Plt Count 350 MPV 10.4 Immature Gran % 0.9 Seg Neutrophils % 91.5 Lymphocytes % 5.0 Monocytes % 2.6 Eosinophils % 0.0 Basophils % 0.0 Neutrophils # 9.6 H Lymphocytes # 0.5 L Monocytes # 0.3 Eosinophils # 0.0 Basophils # 0.0 Sodium 131 L Potassium 5.4 H Chloride 99 Carbon Dioxide 24 BUN 71 H D Creatinine 3.10 H Est GFR ( Amer) 24 L Est GFR (Non-Af Amer) 20 L BUN/Creatinine Ratio 23 Glucose 150 H Calculated Osmolality 296 Calcium 8.0 L Phosphorus 4.4 Magnesium 2.6 Consult Discharge Plan - Plan Referrals: Dr. Hansel Ness [Other]
--- NOTE | 2016-12-07 14:59 | Nephrology Consult Note ---
Date of Encounter: 12/07/16 Time of Encounter: 11:00 Assessment and Plan (1) DOMITILA (acute kidney injury) Current Visit: No Status: Acute Elevated Scr int he setting of CHF exacerbation along with diuresis and hypotension Agree with decreasing diuretics Will hold lisinopril for now US of kidney pending Will dose with albumin today and continue po fluids Will check urine for urea, sodium, creatinine and eosinophils Avoid nephrotoxins if possible (2) Hyperkalemia Current Visit: Yes Status: Acute Potassium noted at 5.4 de to Domitila Denia diet advised Holding lisinopril should help as well Kayexalate not needed yet (3) Chronic kidney disease, stage III (moderate) Current Visit: No Status: Chronic Will initiate CKD workup: SPEP, UPEP, urine for proteinuria, KELIN, C3, C4, PTH levels History of Present Illness - Reason for Consult Consult date: 12/07/16 Acute Kidney Injury, Chronic Kidney Disease Requesting physician: Deisy Lopez - History of Present Illness 71 y o male with PMH of CAD s/p CABG, recent NSTEMI, COPD, CHF with EF of 30% admitted after a recent discharge with progressive SOB deemed with CHF/COPD exacerbation with diuresis started. SCr worsening since then from2.13, GFR 31 on admission to 3.1, GFR 20 today. He denies any prior history of CKD though his records shows SCr fluctuating from 1.55 to 2.65 GFR 20-40s dating back to 2015. He denies any family history of renal disease. No urinary sxs including hematuria, proteinuria or kidney stones. No NSAIDs use. Past Med Surg Social Fam HX - Past Medical History Medical history: atrial fibrillation, CHF, COPD, coronary artery disease, CVA, myocardial infarction, other Psychiatric history: anxiety, depression - Past Surgical History Surgical History: appendectomy, carotid endarterectomy, coronary bypass (CABG), other - Social History Smoking Status: Current some day smoker Packs per day: 1 Smokeless Tobacco Status: No Alcohol use: none Drug use: none - Family History Mother Living Status: Hx Family Cardiac Disorders: Yes Father Living Status: Hx Family Cardiac Disorders: Yes Hx Family Respiratory Disorders: Yes Medications and Allergies ALPRAZolam [Xanax 1 MG Tablet] 1 mg PO TID PRN 10/29/15 [History] Aspirin [Adult Low Dose Aspirin EC] 81 mg PO DAILY 10/29/15 [History] Atorvastatin Calcium [Lipitor] 80 mg PO HS 10/29/15 [History] Carvedilol [Coreg] 3.125 mg PO BID 10/29/15 [History] Clopidogrel [Plavix] 75 mg PO DAILY 10/29/15 [History] Lisinopril [Zestril] 10 mg PO DAILY 10/29/15 [History] Nitroglycerin [Nitrostat] 0.4 mg SL PRN PRN MDD 3 10/29/15 [History] Oxycodone HCl/Acetaminophen [Percocet 10-325 mg Tablet] 1 tab PO QID PRN [History] Levothyroxine [Synthroid] 50 mcg PO 0630 #30 tablet 10/31/15 [Rx] Pregabalin [Lyrica] 150 mg PO BID PRN 11/23/16 [History] Albuterol Neb [AccuNeb] 0.63 mg IH Q2HR PRN #5 mls 11/25/16 [Rx] Furosemide [Lasix] 20 mg PO DAILY #30 tablet 11/25/16 [Rx] Potassium Chloride 10 meq PO DAILY #30 tab.er.prt 11/25/16 [Rx] Allergies No Known Allergies Allergy (Verified 11/23/16 15:40) Review of Systems All Systems: reviewed and no additional remarkable complaints except as stated ( ten systems reviewed) Exam - Vital Signs Vital signs: Initial Vital Signs Temp Pulse Resp BP Pulse Ox 98.1 F 92 16 153/90 96 12/04/16 04:31 12/04/16 04:31 12/04/16 04:31 12/04/16 04:31 12/04/16 04:31 Vital Signs - Last 8 Hours Temp Pulse Resp BP Pulse Ox 12/07/16 11:14 97.6 F 62 14 99/53 94 12/07/16 11:05 16 102/46 91 12/07/16 08:53 94 Intake and Output 12/06/16 12/07/16 12/07/16 23:59 07:59 15:59 Intake Total 240 / 240 700 / 700 220 / 220 Output Total 1400 / 1400 1100 / 1100 800 / 800 Balance -1160 / -1160 -400 / -400 -580 / -580 Intake: IV Fluids 100 / 100 Maxipime 2,000 MG In 100 / 100 Dextrose 5% (Minibag+) 100 ML 100 ML @ 200 mls/ hr IVPB Q24H [facility] Rx#: [id number] Oral 240 / 240 600 / 600 220 / 220 Output: Urine 1400 / 1400 1100 / 1100 800 / 800 Other: Meal Whole Milk x 1 Lunch Percent of Meal Consumed 95% Weight 81.102 kg Patient Weight 12/07/16 23:59 Weight 81.102 kg - General Appearance General appearance: well-developed, well-nourished EENT: ATNC, mucous membranes moist Neck: no JVD, supple Additional Comments: decreased air entry throughout but no wheezes bilat Cardiology: no edema, normal S1, normal S2 Gastrointestinal: no tenderness, no guarding Integumentary: no rash, warm and dry Neurologic: no focal deficit Musculoskeletal: no deformities Psychiatric: mood/affect appropriate Results - Lab Results 12/07/16 02:59 12/07/16 02:59 Most recent lab results Calcium 8.0 mg/dL (8.6-10.8) L 12/07/16 02:59 Phosphorus 4.4 mg/dL (2.3-4.7) 12/07/16 02:59 Magnesium 2.6 mg/dL (1.6-2.6) 12/07/16 02:59 Consult Discharge Plan - Plan Referrals: Dr. Hansel Ness [Other]
[2016-12-07 16:11] LABS: Uric Acid 8.9 mg/dL (3.5-7.2)
[2016-12-07] MEDS: *HR* Heparin 5,000 UNIT/ML VIAL SQ SCH (17:28)
[2016-12-07] MEDS ORDERED: predniSONE 20 MG TABLET PO SCH (18:00)
[2016-12-07] MEDS: Cefepime HCl 2,000 MG in D5% in Water (Mini-Bag+) 100 ML IVPB SCH (21:01)
[2016-12-07] MEDS: Pregabalin 75 MG CAPSULE PO SCH (21:02)
[2016-12-08] MEDS: Ipratropium/Albuterol Neb 3 ML IH SCH ×2 (03:49→09:55)
[2016-12-08] MEDS: ALPRAZolam 1 MG TABLET PO PRN (05:19)
[2016-12-08] MEDS: *HR* OxyCODONE/APAP 10/325 TABLET PO PRN ×2 (05:19→11:27)
[2016-12-08 05:29] LABS: Hematocrit 34.2 % (37.5-50.1); Hemoglobin 11.3 g/dL (12.9-16.9); Immature Granulocytes % 0.7 % (0-4); Lymphocytes # 0.5 K/mcL (0.6-4.6); Lymphocytes % 5.3 %; Mean Corpuscular Hemoglobin 30.1 pg (28.0-33.3); Mean Corpuscular Volume 91.2 fL (83.0-100.0); Mean Platelet Volume 10.5 fL (9.4-12.4); Monocytes # 0.5 K/mcL (0.0-1.3); Monocytes % 4.7 %; Neutrophils # 8.8 K/mcL (1.6-8.9); Platelet Count 343 K/mcL (140-400); Red Blood Count 3.75 M/mcL (4.19-5.50); Red Cell Distribution Width 13.5 % (11.5-14.5); Segmented Neutrophils % 89.3 %
[2016-12-08 06:23] LABS: Calcium 8.3 mg/dL (8.6-10.8); Magnesium 2.6 mg/dL (1.6-2.6); Phosphorous 3.6 mg/dL (2.3-4.7); Potassium 5.4 mEq/L (3.5-4.5)
[2016-12-08] MEDS: *HR* Heparin 5,000 UNIT/ML VIAL SQ SCH (07:42)
[2016-12-08] MEDS: Nicotine 14 MG PATCH.TD24 TD SCH (09:10)
[2016-12-08] MEDS: Aspirin Enteric Coated 81 MG Tablet PO SCH (09:58)
[2016-12-08] MEDS: Pregabalin 75 MG CAPSULE PO SCH (09:58)
[2016-12-08] MEDS: Furosemide 40 MG/4 ML VIAL IVP SCH (09:58)
[2016-12-08 11:26] VITALS: BP 136/61
--- NOTE | 2016-12-08 13:33 | Discharge Summary ---
Date of Encounter: 12/08/16 Time of Encounter: 11:06 - Discharge Diagnosis (1) Acute respiratory failure with hypoxia Priority: Primary Status: Resolved (2) Acute exacerbation of CHF (congestive heart failure) Priority: Primary Status: Acute Qualifiers: Congestive heart failure type: combined Qualified Code(s): I50.43 - Acute on chronic combined systolic (congestive) and diastolic (congestive) heart failure (3) CAD (coronary artery disease) Priority: Secondary Status: Chronic Qualifiers: Coronary Disease-Associated Artery/Lesion type: bypass graft [place] vs. transplanted heart: [place] heart Associated angina: without angina Qualified Code(s): I25.810 - Atherosclerosis of coronary artery bypass graft(s) without angina pectoris (4) COPD exacerbation Priority: Secondary Status: Acute (5) Dxojz-xq-gzqaydy kidney injury Priority: Secondary Status: Acute (6) Hypotension Priority: Secondary Status: Resolved Qualifiers: Hypotension type: unspecified hypotension type Qualified Code(s): I95.9 - Hypotension, unspecified (7) Hypothyroidism Priority: Secondary Status: Chronic Qualifiers: Hypothyroidism type: unspecified Qualified Code(s): E03.9 - Hypothyroidism , unspecified (8) Right lower lobe pneumonia Priority: Secondary Status: Acute Qualifiers: Pneumonia type: due to unspecified organism Qualified Code(s): J18.1 - Lobar pneumonia, unspecified organism (9) Tobacco abuse Priority: Secondary Status: Acute (10) DVT prophylaxis Priority: Secondary Status: Acute - Discharge Medications Prescriptions: Furosemide [Lasix] 40 mg PO BID #60 tab levoFLOXacin [Levaquin] 500 mg PO DAILY #2 tablet predniSONE [PredniSONE] 40 mg PO 1800 #5 tablet Home Medications: ALPRAZolam [Xanax 1 MG Tablet] 1 mg PO TID PRN 10/29/15 [History] Aspirin [Adult Low Dose Aspirin EC] 81 mg PO DAILY 10/29/15 [History] Atorvastatin Calcium [Lipitor] 80 mg PO HS 10/29/15 [History] Carvedilol [Coreg] 3.125 mg PO BID 10/29/15 [History] Clopidogrel [Plavix] 75 mg PO DAILY 10/29/15 [History] Nitroglycerin [Nitrostat] 0.4 mg SL PRN PRN MDD 3 10/29/15 [History] Oxycodone HCl/Acetaminophen [Percocet 10-325 mg Tablet] 1 tab PO QID PRN [History] Levothyroxine [Synthroid] 50 mcg PO 0630 #30 tablet 10/31/15 [Rx] Pregabalin [Lyrica] 150 mg PO BID PRN 11/23/16 [History] Albuterol Neb [AccuNeb] 0.63 mg IH Q2HR PRN #5 mls 11/25/16 [Rx] Potassium Chloride 10 meq PO DAILY #30 tab.er.prt 11/25/16 [Rx] Furosemide [Lasix] 40 mg PO BID #60 tab 12/08/16 [Rx] levoFLOXacin [Levaquin] 500 mg PO DAILY #2 tablet 12/08/16 [Rx] predniSONE [PredniSONE] 40 mg PO 1800 #5 tablet 12/08/16 [Rx] Allergies/Adverse Reactions: Allergies No Known Allergies Allergy (Verified 11/23/16 15:40) Procedures/tests Complete & Pending: Procedures Performed prior 72 hours Category Date Time Status US retroperitoneal comp [US] Stat Exams 12/07/16 07:45 Ordered Date of admission: 12/04/16 07:53 Primary care physician: PCP NO Consults: 12/05/16 17:47 Consult to Palliative Care [CONS] Routine Comment: Consulting Provider: Palliative Care Sandy Reason for Consult: End-stage systolic heart failure and renal failure Call Completed: No 12/07/16 07:44 Consult to Nephrology [CONS] Routine Consulting Provider: Kidney Sandy/SABINE/MIL/CHAYO Reason for Consult: acute on chronic kidney injury Call Completed: Yes Discharging clinician: Deisy Lopez Anticipated date of discharge: 12/08/16 - Patient Status Disposition: Home, Self-Care Condition: Good Functional capacity at discharge: independent ambulation Overall status at discharge: patient is back to baseline - Discharge Instructions Follow Up With: Dr. Hansel Ness [Other] (call Thursday to make a follow up appointment ) Forms: ED Satisfaction Letter Additional Instructions: Please follow-up with your primary care physician within 5 days after her discharge from the hospital. Please follow up with nephrology within 1 week after your discharge from the hospital. Please obtain the provided lab work prior to your appointment with your parts counter specialist. Please continue to take oral steroids and antibiotics as prescribed. Due to your kidney injury, your home dose of lisinopril has been placed on hold. Please continue to hold this medication until your follow-up appointment with your parts counter specialist. Your home dose of Lasix has been increased to 40 mg twice a day. Please take this medication as prescribed. You have qualified for home oxygen and will be discharged with home oxygen. Smoking cessation is highly advised. Smoking while on oxygen therapy is extremely dangerous and can cause fatal christine and explosions. DO NOT SMOKE IF YOU ARE USING OXYGEN THERAPY. Continue all your home medications as prescribed by your primary care physician. - Diet and Activity Activity: resume usual activities as tolerated, wear oxygen at all times Diet: low salt diet Hospital course: Mr. Breaux is a 71 year old male with past medical history of atrial fibrillation, CHF, COPD, CAD, hypothyroidism, noncompliance, tobacco abuse who was admitted for acute respiratory failure secondary to CHF decompensation, COPD exacerbation, and pneumonia. He was placed on O2 supplementation support, diuretic therapy, IV steroids, and IV antibiotics. Patient responded appropriately to therapy. His hospital course was further complicated with acute kidney injury. As per his med records patient appears to have non- diagnosed chronic kidney disease. Patient was evaluated by nephrology. His home dose of lisinopril was placed on hold. Diuretic therapy was continued given CHF. Patient responded well to this medical adjustment with improvement in his kidney function. Patient is an every day smoker and extensive smoking cessation counseling was held on daily basis while his hospitalization. Patient continues to smoke and refuses to quit at this time. He underwent O2 qualification test and qualified for home oxygen. His renal function is improved however is not at baseline. He is hemodynamically stable and will be discharged to home with home oxygen and further follow-up with nephrology and primary care physician after discharge. Patient demonstrates understanding of his diagnosis and agrees with the discharge care and plan. - Time Spent with Patient Total time spent providing and/or coordinating discharge services: Greater than 30 minutes - Constitutional Vitals: Temp Pulse Resp BP Pulse Ox 98.2 F 77 16 136/61 97 12/08/16 11:21 12/08/16 11:21 12/08/16 11:21 12/08/16 11:21 12/08/16 12:45 General appearance: Present: A&O X 3, no acute distress, answers questions appropriately - Head Head exam: Present: atraumatic, normocephalic - Eye Eye exam: Present: normal appearance, conjuntiva pink, sclera anicteric - Respiratory Respiratory exam: Absent: respiratory distress, rhonchi, wheezes - Cardiovascular Cardiovascular exam: Present: RRR, +S1, +S2. Absent: diastolic murmur, gallop, rubs, systolic murmur - GI/Abdominal GI/Abdominal exam: Present: normal bowel sounds, soft, no peritoneal signs. Absent: distended, tenderness - Extremities Exam Extremities exam: Present: warm, radial pulses palpable and symetrical. Absent : calf tenderness, cyanotic, pedal edema - Neurological Exam Neurological exam: Present: alert, oriented X3 - Psychiatric Psychiatric exam: Present: normal affect, normal mood
[2016-12-08] MEDS: Cefepime HCl 2,000 MG in D5% in Water (Mini-Bag+) 100 ML IVPB SCH (13:51)
[2016-12-08] MEDS ORDERED: levoFLOXacin 500 MG TABLET PO ONE (14:07)
[2016-12-10 15:22] LABS: Complement Component 3 100 mg/dL (88-201); Complement Component 4 25 mg/dL (10-40)
[2016-12-11 08:34] LABS: Alpha 2 Globulin (PEP) 0.79 g/dL (0.48-1.05); Beta Globulin (PEP) 0.61 g/dL (0.48-1.10)
[2016-12-11 12:12] LABS: ANA IgG by ELISA NONE DETECTED (None Detected); IFE Reflexed NOT DONE
== END 2016-12-08 15:16 | disposition home or self-care (01) | DRG 189 ==
LOC: 2ANU 04:25 → EMEROO 04:25 → SUATTDRO 07:53 → 2ANU 07:58
PROVIDERS: ADMIT Internal Medicine; ATTEND Internal Medicine

== ENCOUNTER 2017-11-15 14:27 | Observation (INO) ==
--- NOTE | 2017-11-15 15:18 | Emergency Department Note ---
Disposition Clinical Impression: Hemolysis, Elevated troponin, Pneumothorax after biopsy Disposition: Admitted As Inpatient Condition: Good Time of Disposition: 16:54 General Adult HPI - General Chief complaint: ED Shortness of Breath/Dyspnea Stated complaint: coughing up blood s/p biopsy Thursday Time Seen by Provider: 11/15/17 15:00 Source: patient Mode of arrival: ambulatory Limitations: no limitations Nursing Notes Reviewed: Yes Vital Signs Reviewed: Yes - History of Present Illness HPI Narrative: Patient is a 72-year-old male that presents the emergency department for coughing up blood. Patient states that this is been ongoing for roughly the past 24 hours. He states that 2 days ago he had a lung biopsy for lung cancer and then the following day he developed the blood when he coughed. States it is progressively been getting more pronounced. States that he feels like he is coughing up almost a tablespoon of blood at a time. States that it is bright red to dark in color. Patient states that he has never had anything like this before. Patient does state that he is having some left-sided chest pain at this time. He states that he is always short of breath but is currently more short of breath than normal. Patient denies any radiation of this chest pain. Pain Scale: 7 - Related Data Home Medications Medication Instructions Recorded Confirmed ALPRAZolam [Xanax 1 MG Tablet] 1 mg PO TID PRN 10/29/15 12/04/16 Aspirin [Adult Low Dose Aspirin EC] 81 mg PO DAILY 10/29/15 12/04/16 Atorvastatin Calcium [Lipitor] 80 mg PO HS 10/29/15 12/04/16 Carvedilol [Coreg] 3.125 mg PO BID 10/29/15 12/04/16 Clopidogrel [Plavix] 75 mg PO DAILY 10/29/15 12/04/16 Nitroglycerin [Nitrostat] 0.4 mg SL PRN PRN MDD 3 10/29/15 12/04/16 Oxycodone HCl/Acetaminophen 1 tab PO QID PRN 10/29/15 12/04/16 [Percocet 10-325 mg Tablet] Pregabalin [Lyrica] 150 mg PO BID PRN 11/23/16 12/04/16 Previous Rx's Medication Instructions Recorded Levothyroxine [Synthroid] 50 mcg PO 0630 #30 tablet 04/20/16 Albuterol Neb [AccuNeb] 0.63 mg IH Q2HR PRN #5 mls 11/25/16 Potassium Chloride 10 meq PO DAILY #30 tab.er.prt 11/25/16 Furosemide [Lasix] 40 mg PO BID #60 tab 12/08/16 Allergies Allergy/AdvReac Type Severity Reaction Status Date / Time No Known Allergies Allergy Verified 11/23/16 15:40 All systems ED: reviewed and negative except as stated. Cardiovascular: Reports: chest pain Respiratory: Reports: cough, dyspnea, hemoptysis Gastrointestinal: Denies: abdominal pain, nausea, vomiting Past Medical History - Past Medical History Medical history: Reports: atrial fibrillation, CHF, COPD, coronary artery disease, CVA, myocardial infarction, other Surgical history: Reports: appendectomy, carotid endarterectomy, coronary bypass (CABG), other Psychiatric history: Reports: anxiety, depression - Social History Smoking Status: Former smoker Smokeless Tobacco Status: No Alcohol use: Reports: none Drug use: Reports: none Physical Exam - General Limitations: no limitations General appearance: alert, in no apparent distress - Head Head exam: atraumatic, normocephalic - Eye Eye exam: Present: normal appearance, EOMI - Neck Neck exam: Present: normal inspection, full ROM, trachea midline - Chest Chest inspection: Present: other (Scars from previous surgery. Small scab on the left side from biopsy.) - Respiratory Respiratory exam: Present: normal lung sounds bilaterally, other. Absent: respiratory distress, wheezes - Cardiovascular Cardiovascular exam: Present: regular rate, normal rhythm, normal heart sounds, +S1, +S2 - Abdominal Exam Abdominal exam: Present: soft, Non-Tender, normal bowel sounds - Neurological Exam Neurological exam: Present: alert, oriented X3 - Psychiatric Psychiatric exam: Present: normal affect, normal mood - Skin Skin exam: Present: warm, dry, intact Course - Consultations Consultation #1: I called and spoke with cardiothoracic surgery and made them aware that the patient will be admitted to the hospital for a pneumothorax that measures 1 cm. Time: 17:05 Vital Signs Temperature 98.3 F 11/15/17 14:43 Pulse Rate 73 11/15/17 14:43 Respiratory Rate 20 11/15/17 14:43 Blood Pressure 161/71 11/15/17 14:43 O2 Sat by Pulse Oximetry 96 11/15/17 14:43 Temperature 97.6 F 11/15/17 17:45 Pulse Rate 67 11/15/17 17:45 Respiratory Rate 17 11/15/17 17:45 Blood Pressure 179/77 11/15/17 17:45 O2 Sat by Pulse Oximetry 95 11/15/17 17:45 Oxygen Delivery Oxygen Delivery Room Air Medical Decision Making - MDM Narrative Medical decision making narrative: Due to the patient presenting with hemoptysis after a lung biopsy there is concern for possible bleeding from the biopsy site. We will obtain a CBC, BMP and troponin chest x-ray and EKG. We will also obtain coagulation studies due to the patient having recently been on anticoagulation. The patient was found to have a 1 cm pneumothorax on the left. Patient did have an elevated troponin of 0.04. His EKG did not show any evidence of STEMI at this time. There was a bundle branch block that was present however this was present on previous EKG on 12/04/16. I called and spoke with the on-call gypsum block setter Dr. Chandler and he recommended that the patient be admitted to the hospital under medicine with a consult to pulmonology. I called and spoke with the admitting hospitalist and he has accepted the patient to their service. He has requested that I call and inform cardiothoracic surgery that the patient is coming into the hospital. This will be done prior to the patient going to the floor. Patient does have a mild anemia however this does not appear to be new for the past couple of days. Patient also had an elevated creatinine however this appears to be improved from the patient's baseline. - Medical Records Medical records reviewed: Yes I reviewed the patient's medical records. - Lab Data Lab results reviewed: Yes I reviewed the patient's lab results. Result diagrams: 11/15/17 15:22 11/15/17 15:22 Lab Results 11/15/17 11/15/17 11/15/17 Range/Units 15:22 15:22 15:22 WBC 6.3 (4.3-11.1) K/mcL RBC 3.74 L (4.19-5.50) M/mcL Hgb 11.2 L (12.9-16.9) g/dL Hct 34.7 L (37.5-50.1) % MCV 92.8 (83.0-100.0) fL MCH 29.9 (28.0-33.3) pg MCHC 32.3 (31.6-35.5) g/dL RDW 14.0 (11.5-14.5) % Plt Count 171 (140-400) K/mcL MPV 10.1 (9.4-12.4) fL Immature Gran % 0.3 (0-4) % Seg Neutrophils % 71.6 % Lymphocytes % 18.3 % Monocytes % 8.3 % Eosinophils % 1.0 % Basophils % 0.5 % Neutrophils # 4.5 (1.6-8.9) K/mcL Lymphocytes # 1.2 (0.6-4.6) K/mcL Monocytes # 0.5 (0.0-1.3) K/mcL Eosinophils # 0.1 (0.0-0.6) K/mcL Basophils # 0.0 (0.0-0.2) K/mcL Nucleated RBCs/100 WBC 0.3 H (0) /100 WBC PT 12.0 (9.4-12.1) Seconds INR 1.1 APTT 29.3 (26.0-36.0) Seconds Sodium 136 (136-145) mEq/L Potassium 4.3 (3.5-5.1) mEq/L Chloride 108 H (98-107) mEq/L Carbon Dioxide 22 L (23-29) mEq/L BUN 20 (8-23) mg/dL Creatinine 1.72 H (0.70-1.30) mg/dL Est GFR ( Amer) 48 L (> 60) Est GFR (Non-Af Amer) 39 L (> 60) BUN/Creatinine Ratio 12 (6-26) Glucose 118 H (70-105) mg/dL Calculated Osmolality 286 (280-300) Lactic Acid (0.5-2.2) mmol/L Calcium 9.0 (8.6-10.3) mg/dL Troponin I 0.04 H* (< 0.04) ng/mL B-Natriuretic Peptide (Less than 100) pg/mL 11/15/17 11/15/17 Range/Units 15:22 15:22 WBC (4.3-11.1) K/mcL RBC (4.19-5.50) M/mcL Hgb (12.9-16.9) g/dL Hct (37.5-50.1) % MCV (83.0-100.0) fL MCH (28.0-33.3) pg MCHC (31.6-35.5) g/dL RDW (11.5-14.5) % Plt Count (140-400) K/mcL MPV (9.4-12.4) fL Immature Gran % (0-4) % Seg Neutrophils % % Lymphocytes % % Monocytes % % Eosinophils % % Basophils % % Neutrophils # (1.6-8.9) K/mcL Lymphocytes # (0.6-4.6) K/mcL Monocytes # (0.0-1.3) K/mcL Eosinophils # (0.0-0.6) K/mcL Basophils # (0.0-0.2) K/mcL Nucleated RBCs/100 WBC (0) /100 WBC PT (9.4-12.1) Seconds INR APTT (26.0-36.0) Seconds Sodium (136-145) mEq/L Potassium (3.5-5.1) mEq/L Chloride (98-107) mEq/L Carbon Dioxide (23-29) mEq/L BUN (8-23) mg/dL Creatinine (0.70-1.30) mg/dL Est GFR ( Amer) (> 60) Est GFR (Non-Af Amer) (> 60) BUN/Creatinine Ratio (6-26) Glucose (70-105) mg/dL Calculated Osmolality (280-300) Lactic Acid 1.1 (0.5-2.2) mmol/L Calcium (8.6-10.3) mg/dL Troponin I (< 0.04) ng/mL B-Natriuretic Peptide 1615 H (Less than 100) pg/mL - Radiology Data Radiology results reviewed: Yes I reviewed the patient's radiology results. Chest X-Ray 11/15/17 15:07 IMPRESSION: 1. Left pneumothorax, 1 cm from the visceral to parietal pleural distance. 2. Left upper lobe nodule, recently biopsied. D/ / Yaniv Pacheco MD / Yaniv Pacheco MD Interpreting Provider: Yaniv Pacheco MD - EKG Data EKG #1 EKG attestation: Yes I reviewed and interpreted this EKG. EKG results narrative: EKG showed a sinus rhythm with a left bundle branch block at a rate of 73 beats from a, [place] interval of 189, QRS duration of 149, QTC of 229 with a normal axis. This is compared to previous EKG on 12/04/16 which showed a sinus tachycardia with a left bundle branch block. There is no evidence of STEMI on this EKG.
--- NOTE | 2017-11-15 15:18 | Emergency Department Note ---
Disposition Clinical Impression: Hemolysis, Elevated troponin, Pneumothorax after biopsy Disposition: Admitted As Inpatient Condition: Good General Adult HPI - General Chief complaint: ED Shortness of Breath/Dyspnea Stated complaint: coughing up blood s/p biopsy Thursday Time Seen by Provider: 11/15/17 15:00 Source: patient Limitations: no limitations Nursing Notes Reviewed: Yes Vital Signs Reviewed: Yes - History of Present Illness Pain Scale: 7 - Related Data Home Medications Medication Instructions Recorded Confirmed ALPRAZolam [Xanax 1 MG Tablet] 1 mg PO TID PRN 10/29/15 11/15/17 Aspirin [Adult Low Dose Aspirin EC] 81 mg PO DAILY 10/29/15 11/15/17 Atorvastatin Calcium [Lipitor] 80 mg PO HS 10/29/15 11/15/17 Carvedilol [Coreg] 3.125 mg PO BID 10/29/15 11/15/17 Clopidogrel [Plavix] 75 mg PO DAILY 10/29/15 11/15/17 Nitroglycerin [Nitrostat] 0.4 mg SL PRN PRN MDD 3 10/29/15 11/15/17 Oxycodone HCl/Acetaminophen 1 tab PO QID PRN 10/29/15 11/15/17 [Percocet 10-325 mg Tablet] Pregabalin [Lyrica] 150 mg PO BID PRN 11/23/16 11/15/17 Previous Rx's Medication Instructions Recorded Levothyroxine [Synthroid] 50 mcg PO 0630 #30 tablet 10/31/15 Albuterol Neb [AccuNeb] 0.63 mg IH Q2HR PRN #5 mls 11/25/16 Potassium Chloride 10 meq PO DAILY #30 tab.er.prt 11/25/16 Furosemide [Lasix] 40 mg PO BID #60 tab 12/08/16 Allergies Allergy/AdvReac Type Severity Reaction Status Date / Time No Known Allergies Allergy Verified 11/23/16 15:40 Past Medical History - Past Medical History Medical history: Reports: atrial fibrillation, CHF, COPD, coronary artery disease, CVA, myocardial infarction, other Surgical history: Reports: appendectomy, carotid endarterectomy, coronary bypass (CABG), other Psychiatric history: Reports: anxiety, depression - Social History Smoking Status: Former smoker Smokeless Tobacco Status: No Alcohol use: Reports: none Drug use: Reports: none Physical Exam - General Limitations: no limitations General appearance: alert, in no apparent distress Course - Reevaluation(s) Reevaluation #1: I examined this patient and my medical decision-making was reviewed with Dr. Breaux. I agree with the documented findings, disposition and treatment plan. This is a 72 year-old male with history of HTN, HLD, DM2, and AF. He underwent left lung biopsy 2 days ago. He presents with hemoptysis, intermittently since a coughing spell Tip evening. He reports up to a teaspoon of blood with each episode. Associated symptoms include mild pain at the biopsy needle insertion site and a slight increase in dyspnea. He denies any associated fever, leg pain , or swelling. On exam, patient is not in respiratory distress. Lungs clear. Needle insertion site is clean. No crepitus. DDx includes pneumothorax, contusion, hemorrhage, or infarction. Less likely, PNA or ACS. We will check EKG, troponin, basic labs, and CXR, and will discuss the case with Dr. Serrano or other gravity prospecting observer helper television cameraman. Time: 15:16 Vital Signs Temperature 98.3 F 11/15/17 14:43 Pulse Rate 73 11/15/17 14:43 Respiratory Rate 20 11/15/17 14:43 Blood Pressure 161/71 11/15/17 14:43 O2 Sat by Pulse Oximetry 96 11/15/17 14:43 Temperature 97.6 F 11/15/17 17:45 Pulse Rate 67 11/15/17 17:45 Respiratory Rate 17 11/15/17 17:45 Blood Pressure 179/77 11/15/17 17:45 O2 Sat by Pulse Oximetry 95 11/15/17 17:45 Oxygen Delivery Oxygen Delivery Room Air Medical Decision Making - Lab Data Lab results reviewed: Yes I reviewed the patient's lab results. Result diagrams: 11/15/17 15:22 11/15/17 15:22 Lab Results 11/15/17 11/15/17 11/15/17 Range/Units 15:22 15:22 15:22 WBC 6.3 (4.3-11.1) K/mcL RBC 3.74 L (4.19-5.50) M/mcL Hgb 11.2 L (12.9-16.9) g/dL Hct 34.7 L (37.5-50.1) % MCV 92.8 (83.0-100.0) fL MCH 29.9 (28.0-33.3) pg MCHC 32.3 (31.6-35.5) g/dL RDW 14.0 (11.5-14.5) % Plt Count 171 (140-400) K/mcL MPV 10.1 (9.4-12.4) fL Immature Gran % 0.3 (0-4) % Seg Neutrophils % 71.6 % Lymphocytes % 18.3 % Monocytes % 8.3 % Eosinophils % 1.0 % Basophils % 0.5 % Neutrophils # 4.5 (1.6-8.9) K/mcL Lymphocytes # 1.2 (0.6-4.6) K/mcL Monocytes # 0.5 (0.0-1.3) K/mcL Eosinophils # 0.1 (0.0-0.6) K/mcL Basophils # 0.0 (0.0-0.2) K/mcL Nucleated RBCs/100 WBC 0.3 H (0) /100 WBC PT 12.0 (9.4-12.1) Seconds INR 1.1 APTT 29.3 (26.0-36.0) Seconds Sodium 136 (136-145) mEq/L Potassium 4.3 (3.5-5.1) mEq/L Chloride 108 H (98-107) mEq/L Carbon Dioxide 22 L (23-29) mEq/L BUN 20 (8-23) mg/dL Creatinine 1.72 H (0.70-1.30) mg/dL Est GFR ( Amer) 48 L (> 60) Est GFR (Non-Af Amer) 39 L (> 60) BUN/Creatinine Ratio 12 (6-26) Glucose 118 H (70-105) mg/dL Calculated Osmolality 286 (280-300) Lactic Acid (0.5-2.2) mmol/L Calcium 9.0 (8.6-10.3) mg/dL Troponin I 0.04 H* (< 0.04) ng/mL B-Natriuretic Peptide (Less than 100) pg/mL 11/15/17 11/15/17 Range/Units 15:22 15:22 WBC (4.3-11.1) K/mcL RBC (4.19-5.50) M/mcL Hgb (12.9-16.9) g/dL Hct (37.5-50.1) % MCV (83.0-100.0) fL MCH (28.0-33.3) pg MCHC (31.6-35.5) g/dL RDW (11.5-14.5) % Plt Count (140-400) K/mcL MPV (9.4-12.4) fL Immature Gran % (0-4) % Seg Neutrophils % % Lymphocytes % % Monocytes % % Eosinophils % % Basophils % % Neutrophils # (1.6-8.9) K/mcL Lymphocytes # (0.6-4.6) K/mcL Monocytes # (0.0-1.3) K/mcL Eosinophils # (0.0-0.6) K/mcL Basophils # (0.0-0.2) K/mcL Nucleated RBCs/100 WBC (0) /100 WBC PT (9.4-12.1) Seconds INR APTT (26.0-36.0) Seconds Sodium (136-145) mEq/L Potassium (3.5-5.1) mEq/L Chloride (98-107) mEq/L Carbon Dioxide (23-29) mEq/L BUN (8-23) mg/dL Creatinine (0.70-1.30) mg/dL Est GFR ( Amer) (> 60) Est GFR (Non-Af Amer) (> 60) BUN/Creatinine Ratio (6-26) Glucose (70-105) mg/dL Calculated Osmolality (280-300) Lactic Acid 1.1 (0.5-2.2) mmol/L Calcium (8.6-10.3) mg/dL Troponin I (< 0.04) ng/mL B-Natriuretic Peptide 1615 H (Less than 100) pg/mL - Radiology Data Radiology results reviewed: Yes I reviewed the patient's radiology results. XR/XR chest 1V portable IMPRESSION: 1. Left pneumothorax, 1 cm from the visceral to parietal pleural distance. 2. Left upper lobe nodule, recently biopsied. - EKG Data EKG #1 EKG attestation: Yes I reviewed and interpreted this EKG. EKG shows normal: sinus rhythm Rate: normal Richardson/QRS: LBBB Interpretation: nonspecific ST-T wave changes
[2017-11-15 15:35] LABS: Basophils % 0.5 %; Eosinophils # 0.1 K/mcL (0.0-0.6); Hematocrit 34.7 % (37.5-50.1); Hemoglobin 11.2 g/dL (12.9-16.9); Immature Granulocytes % 0.3 % (0-4); Lymphocytes # 1.2 K/mcL (0.6-4.6); Lymphocytes % 18.3 %; Mean Corpuscular HGB Conc 32.3 g/dL (31.6-35.5); Mean Corpuscular Hemoglobin 29.9 pg (28.0-33.3); Mean Corpuscular Volume 92.8 fL (83.0-100.0); Mean Platelet Volume 10.1 fL (9.4-12.4); Monocytes # 0.5 K/mcL (0.0-1.3); Monocytes % 8.3 %; Neutrophils # 4.5 K/mcL (1.6-8.9); Nucleated Red Blood Cells 0.3 /100 WBC (0); Platelet Count 171 K/mcL (140-400); Red Blood Count 3.74 M/mcL (4.19-5.50); Segmented Neutrophils % 71.6 %
[2017-11-15] MEDS ORDERED: *HR* OxyCODONE/APAP 5/325 TABLET PO ONE (15:40)
[2017-11-15 15:45] LABS: INR 1.1
[2017-11-15 15:48] LABS: Activated Partial Thrombo Time 29.3 Seconds (26.0-36.0)
[2017-11-15 15:59] LABS: Potassium 4.3 mEq/L (3.5-5.1)
[2017-11-15 16:06] LABS: Troponin I 0.04 ng/mL (< 0.04)
[2017-11-15] MEDS ORDERED: Naloxone 0.4 MG/ML INJ IVP PRN (18:15)
[2017-11-15] MEDS ORDERED: Nitroglycerin 0.4 MG TAB.SUBL SL PRN (18:25)
[2017-11-15] MEDS ORDERED: Albuterol Neb 0.63 MG/3 ML VIAL IH PRN (18:25)
[2017-11-15] MEDS ORDERED: Pregabalin 75 MG CAPSULE PO PRN (18:25)
--- NOTE | 2017-11-15 18:34 | Internal Med History&Physical ---
Date of Encounter: 11/15/17 Time of Encounter: 18:34 Internal Medicine - H&P: HPI Chief complaint: Hemoptysis, chest pain Admitted From: Home Plans for Post Hospital Care: Home History of present illness: Mr. Breaux is a 72 year old male with history of CAD status post 7 stents, carotid stenosis, hypertension, hyperlipidemia presents the emergency department for coughing up blood since yesterday. Patient had left lung nodule biopsy done on this Thursday 2 days ago. Yesterday morning he had cough and spit out brownish red blood with half teaspoon for 5 times in whole today morning around 10:00 he had one episode of tiny blood in the sputum therefore got concerned and decided to come to emergency room. He also noticed some chest pressure on left side yesterday that lasted 30 minutes and went away and today in morning again felt pressure not associated with nausea vomiting lightheadedness diaphoresis lasted 30-40 minute and went away spontaneously. He does not have any chest pain at this time. In ER patient had a stable vitals , slight raised creatinine level but better compared to previous lab, raised BNP , raised troponin but chest x-ray 1 cm a small pneumothorax on left side. ER physician talked to cardio thoracic surgeon but he advise for conservative management therefore no formal consult was placed. ER physician also talked to on-call pulmonologists who advised to admit under hospitalist and he will consult. Your physician called on-call hospitalist for the admission with diagnosis hemoptysis, chest pain rule out ACS, observation for pneumothorax. Last echo done in July 2017 with ejection fraction 30% with severe global hypokinesia. Patient denies fever, chills, nausea, vomiting, abdominal pain, urinary or bowel complaint. He denied chest pain at this time. He had minimal cough but very occasional. He did not cough up the blood since morning around 10:00 today. Past Med Surg Social Fam HX - Past Medical History Medical history: atrial fibrillation, CHF, COPD, coronary artery disease, CVA, myocardial infarction, other Psychiatric history: anxiety, depression - Past Surgical History Surgical History: appendectomy, carotid endarterectomy, coronary bypass (CABG), other - Social History Smoking Status: Former smoker Smokeless Tobacco Status: No Alcohol use: none Drug use: none - Family History Mother Living Status: Hx Family Cardiac Disorders: Yes Father Living Status: Hx Family Cardiac Disorders: Yes Hx Family Respiratory Disorders: Yes Internal Medicine - H&P: Meds ALPRAZolam [Xanax 1 MG Tablet] 1 mg PO TID PRN 10/29/15 [History] Aspirin [Adult Low Dose Aspirin EC] 81 mg PO DAILY 10/29/15 [History] Atorvastatin Calcium [Lipitor] 80 mg PO HS 10/29/15 [History] Carvedilol [Coreg] 3.125 mg PO BID 10/29/15 [History] Clopidogrel [Plavix] 75 mg PO DAILY 10/29/15 [History] Nitroglycerin [Nitrostat] 0.4 mg SL PRN PRN MDD 3 10/29/15 [History] Oxycodone HCl/Acetaminophen [Percocet 10-325 mg Tablet] 1 tab PO QID PRN [History] Levothyroxine [Synthroid] 50 mcg PO 0630 #30 tablet 10/31/15 [Rx] Pregabalin [Lyrica] 150 mg PO BID PRN 11/23/16 [History] Albuterol Neb [AccuNeb] 0.63 mg IH Q2HR PRN #5 mls 11/25/16 [Rx] Potassium Chloride 10 meq PO DAILY #30 tab.er.prt 11/25/16 [Rx] Furosemide [Lasix] 40 mg PO BID #60 tab 12/08/16 [Rx] 3 Allergy/AdvReac Type Severity Reaction Status Date / Time No Known Allergies Allergy Verified 11/23/16 15:40 All Systems PM: as documented above in the HPI. - Constitutional Vitals: Temp Pulse Resp BP Pulse Ox 97.6 F 67 17 179/77 95 11/15/17 17:45 11/15/17 17:45 11/15/17 17:45 11/15/17 17:45 11/15/17 17:45 Exam: General appearance: No acute distress, A&O X 3 Head exam: Atraumatic Eye exam: EOMI, PERRLA ENT exam: Moist oral mucosa Neck nontender, supple Respiratory exam: Clear to auscultation bilaterally Cardiovascular exam: Regular rate and rhythm, no systolic murmur Abdominal exam: Soft, nontender, nondistended, positive bowel sounds Extremities exam: No calf tenderness, no pedal edema Present: Skin-no rash, warm, dry, intact Neurological exam: Alert, awake, oriented 3, CN II-XII intact, no focal deficits. No facial droop. Normal speech. Normal gait. Romberg sign negative Internal Med - H&P Results - Labs CBC & Chem 7: 11/15/17 15:22 11/15/17 15:22 - Assessment and plan (1) Hemoptysis Current Visit: Yes Status: Acute Assessment and plan: Minimal amount. No active anemia. A stable hemoglobin compared to last visit. Will repeat CBC in the morning. Hemoccult test. Status post lung biopsy recently. Will hold anticoagulation medicine. Patient is already on hold aspirin and Plavix for last 1 week. Pulmonologists on board. (2) NSTEMI (non-ST elevated myocardial infarction) Current Visit: No Status: Suspected Assessment and plan: Complex located cardiac history CAD with 7stent. No active chest pain at present. Slight raised troponin. Will place patient in telemetry, serial cardiac enzyme monitoring. No anti-coagulant aspirin and Plavix due to active bleed, discussed with the patient. Consulted ship self defense system [id number] operator and discussed the plan. Echogram was done in July 2017 revealed. Continue home medication. (3) Hypertension Current Visit: Yes Status: Acute Assessment and plan: Stable. Continue home medicine. Close monitoring. Qualifiers: Hypertension type: essential hypertension Qualified Code(s): I10 - Essential (primary) hypertension (4) Pneumothorax after biopsy Current Visit: Yes Status: Acute Assessment and plan: Minimal on chest x-ray. Patient is not symptomatic but needs to monitor. Pulse oximetry. Repeat chest x-ray in the morning. Will consult cardiothoracic surgeon if required. (5) DVT prophylaxis Current Visit: Yes Status: Acute Assessment and plan: SCDs. (6) CHF (congestive heart failure) Current Visit: Yes Status: Suspected Assessment and plan: Raised BNP but no previous lab to compare with. No pedal edema. No acute shortness of breath at this time. Lung sounds clear. Continue Lasix. A strict I&O's. Echocardiogram with EF 30%. Financial Services Assistant's on board. Qualifiers: Heart failure type: systolic Heart failure chronicity: unspecified Qualified Code(s): I50.20 - Unspecified systolic (congestive) heart failure - Time Spent With Patient Total time spent is greater than 50% in coordination of care (as documented) at patient's floor/unit and/or counseling patient:
[2017-11-15] MEDS: ALPRAZolam 1 MG TABLET PO PRN (20:31)
[2017-11-16 01:03] LABS: Basophils % 0.7 %; Eosinophils # 0.1 K/mcL (0.0-0.6); Eosinophils % 1.5 %; Hemoglobin 10.1 g/dL (12.9-16.9); Immature Granulocytes % 0.3 % (0-4); Lymphocytes # 1.5 K/mcL (0.6-4.6); Lymphocytes % 25.2 %; Mean Corpuscular HGB Conc 32.6 g/dL (31.6-35.5); Mean Corpuscular Hemoglobin 29.6 pg (28.0-33.3); Mean Corpuscular Volume 90.9 fL (83.0-100.0); Monocytes # 0.6 K/mcL (0.0-1.3); Neutrophils # 3.9 K/mcL (1.6-8.9); Platelet Count 153 K/mcL (140-400); Red Blood Count 3.41 M/mcL (4.19-5.50); Red Cell Distribution Width 13.7 % (11.5-14.5); Segmented Neutrophils % 63.3 %
[2017-11-16 01:31] LABS: Albumin 3.8 g/dL (3.5-5.7); Albumin/Globulin Ratio 1.7 (1.1-2.2); Bilirubin,Total 0.9 mg/dL (0.3-1.0); Calcium 8.6 mg/dL (8.6-10.3); Chol/HDL Ratio 3.5 (0-4.9); Globulin 2.3 g/dL (2.4-3.5); Potassium 3.7 mEq/L (3.5-5.1); Total Protein 6.1 g/dL (6.4-8.9)
[2017-11-16] MEDS: *HR* OxyCODONE/APAP 10/325 TABLET PO PRN ×3 (02:17→12:00)
[2017-11-16] MEDS: ALPRAZolam 1 MG TABLET PO PRN ×2 (07:10→12:00)
[2017-11-16] MEDS ORDERED: Furosemide 40 MG/4 ML VIAL IVP SCH (09:00)
--- NOTE | 2017-11-16 09:48 | Cardiology Consult Note ---
Date of Encounter: 11/16/17 Time of Encounter: 09:00 Assessment and Plan (1) Elevated troponin Current Visit: Yes Status: Acute Mild, adynamic troponin elevation in the setting of hemoptysis, HTN, and renal insufficiency. Likely secondary to demand ischemia. No ECG changes noted from previous. No chest pain reported. Recommend medical therapy--continue current CV medications including BB, statin. Resume ASA/plavix if able by discharge. Last LVEF assessment, 30% which was unchanged from previous (December 2016). Recommend outpatient follow-up with EP for consideration of ICD. No further testing recommended, Cardiology will sign-off. (2) Ischemic cardiomyopathy Current Visit: Yes Status: Acute Hx of ischemic cardiomyopathy, LVEF 30% as of December 2016. Repeat LVEF in 2017, unchanged EF 30%. Last [facility] December 2016--stable CAD, patent bypass grafts. On appropriate medical therapy including asa, statin, BB. Has not been on ACEi due to CKD. Clinically appears euvolemic upon exam. Again, recommend outpatient f/u with EP to discuss consideration of ICD. Of note , biopsy of suspicious lung nodule pending. Has f/u with Pulm. tomorrow. CHF education discussed. Recommend Na/fluid restricted diet, daily weights, and strict I&O's. (3) Hemoptysis Current Visit: Yes Status: Resolved s/p lung biopsy on Thursday, resolved by this AM Pulmonology following. Discussion w patient/family: The assessment and plan as outlined above was discussed with the patient and/or family members who expressed understanding and agreement. All questions were answered. Thank you for involving us in the care of your patient. Please call with any questions. The patient will be discussed and reviewed with Dr. Prince; changes to be made accordingly. History of Present Illness Consult date: 11/16/17 Requesting physician: Kev Holcomb Consult reason: Elevated troponin Chief complaint: Hemoptysis History of present illness: Mr. Breaux is a 72 year old male with PMHx significant for CAD s/p PCI/CABG ( last intervention ~10 years ago), ischemic cardiomyopathy with LVEF 30%, HTN, COPD, CVA, CKD-3, tobacco dependence, and reported AF who presented to the ED with complaints of hemoptysis that started after "coughing fit" on Thursday s/p lung biopsy on Thursday. He reports hemoptysis continued on Thursday and improved on Thursday, no further episodes today. Sputum described as bright red blood at first, then smith colored. He does report episodes of left-sided chest discomfort on Thursday that was "on and off" throughout the day, coughing seemed to make symptoms worse. Pain was different that "heart attack pain." Underwent biopsy on Thursday for suspected malignant lung nodule. Has had poor outpatient follow-up with Cardiology. Prior CV testing: TTE 08/10/17:LVEF 30%, severe global and regional LV systolic dysfunction, mild MR/TR LHC 11/24/16: EF 30%, stable CAD, s/p patent 2/2 bypass grafts--SVG-R PDA patent, LEBLANC-mLAD patent; mild non-obstructive CAD LCx Past Med Surg Social Fam HX - Past Medical History Attestation: Yes The following information was validated with the patient. Source: patient Medical history: atrial fibrillation, CHF, COPD, coronary artery disease, CVA, myocardial infarction, other Psychiatric history: anxiety, depression - Past Surgical History Surgical History: appendectomy, carotid endarterectomy, coronary bypass (CABG), other - Social History Smoking Status: Former smoker Smokeless Tobacco Status: No Alcohol use: none Drug use: none - Family History Mother Living Status: Hx Family Cardiac Disorders: Yes Father Living Status: Hx Family Cardiac Disorders: Yes Hx Family Respiratory Disorders: Yes Medications and Allergies ALPRAZolam [Xanax 1 MG Tablet] 1 mg PO TID PRN 10/29/15 [History] Aspirin [Adult Low Dose Aspirin EC] 81 mg PO DAILY 10/29/15 [History] Atorvastatin Calcium [Lipitor] 80 mg PO HS 10/29/15 [History] Carvedilol [Coreg] 3.125 mg PO BID 10/29/15 [History] Clopidogrel [Plavix] 75 mg PO DAILY 10/29/15 [History] Nitroglycerin [Nitrostat] 0.4 mg SL PRN PRN MDD 3 10/29/15 [History] Oxycodone HCl/Acetaminophen [Percocet 10-325 mg Tablet] 1 tab PO QID PRN [History] Levothyroxine [Synthroid] 50 mcg PO 0630 #30 tablet 10/31/15 [Rx] Pregabalin [Lyrica] 150 mg PO BID PRN 11/23/16 [History] Albuterol Neb [AccuNeb] 0.63 mg IH Q2HR PRN #5 mls 11/25/16 [Rx] Potassium Chloride 10 meq PO DAILY #30 tab.er.prt 11/25/16 [Rx] Furosemide [Lasix] 40 mg PO BID #60 tab 12/08/16 [Rx] 3 Allergy/AdvReac Type Severity Reaction Status Date / Time No Known Allergies Allergy Verified 11/23/16 15:40 All Systems Review: The remainder of the systems were reviewed and are negative - Cardiovascular Cardiovascular: as per HPI Physical Examination Vital Signs, Last 4 Hours Temp Pulse Resp BP Pulse Ox 11/16/17 06:43 98.4 F 60 15 116/49 92 General: Conversant, No Apparent Distress HEENT: Atraumatic, Normocephaly, Mucus Membranes Moist Cardiac: Reg Rate and Rhythm, Normal S1 and S2 Lungs: Normal Breath Sounds Neuro: Alert and responsive Abdomen: Soft Skin: No rashes noted on visualized skin Extremities: No Edema Results 11/16/17 00:47 11/16/17 00:47 Lab Results 11/15/17 11/16/17 11/16/17 18:41 00:47 00:47 WBC 6.1 Hgb 10.1 L Hct 31.0 L Plt Count 153 Sodium Potassium Chloride Carbon Dioxide BUN Creatinine Glucose Calcium Total Bilirubin AST ALT Alkaline Phosphatase Troponin I 0.04 H* 0.05 H* 11/16/17 11/16/17 00:47 06:51 WBC Hgb Hct Plt Count Sodium 136 Potassium 3.7 Chloride 107 Carbon Dioxide 23 BUN 21 Creatinine 1.69 H Glucose 94 Calcium 8.6 Total Bilirubin 0.9 AST 11 L ALT 5 L Alkaline Phosphatase 77 Troponin I 0.04 H* Active Medications Albuterol Sulfate (Accuneb) 0.63 mg IH Q2H PRN PRN Reason: Shortness Of Breath Stop: 05/17/18 18:26 Alprazolam (Xanax) 1 mg PO TID PRN; Protocol PRN Reason: Anxiety Stop: 05/17/18 18:26 Last Admin: 11/16/17 07:10 Dose: 1 mg Atorvastatin Calcium (Lipitor) 80 mg PO HS KUSHAL Stop: 05/17/18 21:01 Last Admin: 11/15/17 20:30 Dose: 80 mg Carvedilol (Coreg) 3.125 mg PO BIDWM KUSHAL PRN Reason: Protocol Stop: 05/18/18 08:01 Furosemide (Lasix) 40 mg IVP DAILY [facility] Stop: 05/18/18 09:01 Last Admin: 11/16/17 07:08 Dose: 40 mg Levothyroxine Sodium (Synthroid) 50 mcg PO 0630 KUSHAL Stop: 05/18/18 06:31 Last Admin: 11/16/17 06:04 Dose: 50 mcg Naloxone HCl (Narcan) 0.4 mg IVP Q2MIN PRN PRN Reason: SEE COMMENTS Stop: 05/17/18 18:16 Nitroglycerin (Nitroglycerin) 0.4 mg SL Q5MIN PRN PRN Reason: CHEST PAIN Stop: 05/17/18 18:26 Oxycodone/Acetaminophen (Percocet 10/325) 1 each PO QID PRN PRN Reason: Moderate Pain Stop: 05/17/18 18:26 Last Admin: 11/16/17 07:10 Dose: 1 each Pregabalin (Lyrica) 150 mg PO BID PRN PRN Reason: mild to moderate pain - Imaging and Cardiology Echo: pending, report reviewed Cardiac cath: report reviewed Holter: pending Other Results: 12 hour tele: avg HR=61 SR, LBBB - EKG Interpretation EKG results cardiology: personally reviewed Consult Discharge Plan - Plan Referrals: Hansel Ness [Primary Care Provider] -
--- NOTE | 2017-11-16 09:49 | Pulmonology Consult Note ---
Date of Encounter: 11/16/17 Time of Encounter: 07:50 Assessment and Plan (1) Pneumothorax after biopsy Current Visit: Yes Status: Acute Review chest x-ray and since patient is asymptomatic and only a small pneumothorax was found is reasonable to monitor without intervention and discussed with patient and also primary team patient can be discharged home with a follow-up chest x-ray tomorrow and if he has symptoms then he has to come to emergency room and patient understand that. Patient had a follow-up in the office and will assess patient when he comes for follow-up. (2) Hemoptysis Current Visit: Yes Status: Resolved This is improving and its expected after lung biopsy with pulmonary hemorrhage. There is no indication for bronchoscopy since this is improving. Thank you for consultation (3) COPD (chronic obstructive pulmonary disease) Current Visit: No Status: Chronic Continue bronchodilators. Qualifiers: COPD type: emphysema Emphysema type: centrilobular Qualified Code(s): J43.2 - Centrilobular emphysema History of Present Illness Consult date: 11/16/17 Requesting physician: Kev Holcomb Reason for consult: pneumothorax Chief complaint: Hemoptysis History of present illness: This is pleasant 72-year-old male who had lung biopsy done with CT-guided biopsy and subsequently he presented to the emergency room with hemoptysis which is improving and was found to have a small pneumothorax. Patient denies any chest pain and he denies any worsening of dyspnea and no significant cough or sputum production. Patient denies any fever or chills. Past Med Surg Social Fam HX - Past Medical History Medical history: atrial fibrillation, CHF, COPD, coronary artery disease, CVA, myocardial infarction, other Psychiatric history: anxiety, depression - Past Surgical History Surgical History: appendectomy, carotid endarterectomy, coronary bypass (CABG), other - Social History Smoking Status: Former smoker Smokeless Tobacco Status: No Alcohol use: none Drug use: none - Family History Mother Living Status: Hx Family Cardiac Disorders: Yes Father Living Status: Hx Family Cardiac Disorders: Yes Hx Family Respiratory Disorders: Yes Medications and Allergies ALPRAZolam [Xanax 1 MG Tablet] 1 mg PO TID PRN 10/29/15 [History] Aspirin [Adult Low Dose Aspirin EC] 81 mg PO DAILY 10/29/15 [History] Atorvastatin Calcium [Lipitor] 80 mg PO HS 10/29/15 [History] Carvedilol [Coreg] 3.125 mg PO BID 10/29/15 [History] Clopidogrel [Plavix] 75 mg PO DAILY 10/29/15 [History] Nitroglycerin [Nitrostat] 0.4 mg SL PRN PRN MDD 3 10/29/15 [History] Oxycodone HCl/Acetaminophen [Percocet 10-325 mg Tablet] 1 tab PO QID PRN [History] Levothyroxine [Synthroid] 50 mcg PO 0630 #30 tablet 10/31/15 [Rx] Pregabalin [Lyrica] 150 mg PO BID PRN 11/23/16 [History] Albuterol Neb [AccuNeb] 0.63 mg IH Q2HR PRN #5 mls 11/25/16 [Rx] Potassium Chloride 10 meq PO DAILY #30 tab.er.prt 11/25/16 [Rx] Furosemide [Lasix] 40 mg PO BID #60 tab 12/08/16 [Rx] 3 Allergy/AdvReac Type Severity Reaction Status Date / Time No Known Allergies Allergy Verified 11/23/16 15:40 All Systems: The remainder of the systems were reviewed and are negative Physical Examination Vital Signs: Vital Signs, Last 4 Hours Temp Pulse Resp BP Pulse Ox 11/16/17 06:43 98.4 F 60 15 116/49 92 General appearance: no acute distress Eyes: nonicteric Neck: supple Effort: normal Inspection: hyperextended Auscultation: left: other (Pleural rub), right: clear Percussion: bilateral: not dull Cardiovascular: regular rate and rhythm Gastrointestinal: normoactive bowel sounds, non-distended Extremities: no cyanosis Musculoskeletal: no deformities normal mental status, non-focal exam mood appropriate Results - Laboratory Findings CBC and BMP: 11/16/17 00:47 11/16/17 00:47 PT/INR, D-dimer PT 12.0 Seconds (9.4-12.1) 11/15/17 15:22 Abnormal lab findings: Abnormal lab results RBC 3.41 M/mcL (4.19-5.50) L 11/16/17 00:47 Hgb 10.1 g/dL (12.9-16.9) L 11/16/17 00:47 Hct 31.0 % (37.5-50.1) L 11/16/17 00:47 Nucleated RBCs/100 WBC 0.3 /100 WBC (0) H 11/15/17 15:22 Creatinine 1.69 mg/dL (0.70-1.30) H 11/16/17 00:47 Est GFR ( Amer) 49 (> 60) L 11/16/17 00:47 Est GFR (Non-Af Amer) 40 (> 60) L 11/16/17 00:47 AST 11 Units/L (13-39) L 11/16/17 00:47 ALT 5 Units/L (7-52) L 11/16/17 00:47 Troponin I 0.04 ng/mL (< 0.04) H* 11/16/17 06:51 B-Natriuretic Peptide 1615 pg/mL (Less than 100) H 11/15/17 15:22 Serum Total Protein 6.1 g/dL (6.4-8.9) L 11/16/17 00:47 Globulin 2.3 g/dL (2.4-3.5) L 11/16/17 00:47 HDL Cholesterol 30 mg/dL (40-59) L 11/16/17 00:47 - Diagnostic Findings Chest x-ray: report reviewed, image reviewed - Clinical Findings Intake & Output: Intake & Output 11/15/17 11/16/17 11/16/17 23:59 07:59 15:59 Intake Total 240 / 240 0 / 0 240 / 240 Balance 240 / 240 0 / 0 240 / 240 Weight 74.1 kg Consult Discharge Plan - Plan Referrals: Hansel Ness [Primary Care Provider] -
[2017-11-16 10:54] VITALS: BP 108/51
--- NOTE | 2017-11-16 11:46 | Discharge Summary ---
- NOTES TO OUTPATIENT PROVIDER Notes to Outpatient Provider: f/u with Dr. De Leon tomorrow to discuss about your lung biopsy results. also please have Chest X ray done before you see him Orders not resulted at time of discharge: Pending orders 11/15/17 18:15 Urinalysis reflex Microscopic [URIN] Routine Date of Encounter: 11/16/17 Time of Encounter: 11:44 - Discharge Diagnosis (1) NSTEMI (non-ST elevated myocardial infarction) Priority: Primary Status: Suspected (2) Pneumothorax after biopsy Priority: Primary Status: Acute (3) Hemoptysis Priority: Secondary Status: Resolved (4) DVT prophylaxis Priority: Secondary Status: Acute (5) Hypertension Priority: Secondary Status: Acute Qualifiers: Hypertension type: essential hypertension Qualified Code(s): I10 - Essential (primary) hypertension (6) CHF (congestive heart failure) Priority: Secondary Status: Suspected Qualifiers: Heart failure type: systolic Heart failure chronicity: unspecified Qualified Code(s): I50.20 - Unspecified systolic (congestive) heart failure Hospital course: Mr. Breaux is a 72 year old male with history of CAD status post 7 stents, carotid stenosis, hypertension, hyperlipidemia presents the emergency department for coughing up blood. Patient had left lung nodule biopsy done on this Thursday 2 days ago. He did c/o some chest discomfort too. His chest x-ray showed 1 cm a small pneumothorax on left side. He was admitted in the hospital for hemoptysis, chest pain rule out ACS, observation for pneumothorax. Pt denied any CP / SOb this morning. He was seen by pulmonary recommend to have f/u CXR in AM and f/u with Pulmonary tomorrow as an out pt. His slightly elevated troponin mostly due to demand ischemia, with his underline chronic ischemic cardiomyopathy. Cardiology evaluated the pt and recommend to continue medical management. So will d/c him home in stable condition. 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 - Time Spent with Patient Total time spent providing and/or coordinating discharge services: - Discharge Medications Home Medications: ALPRAZolam [Xanax 1 MG Tablet] 1 mg PO TID PRN 10/29/15 [History] Aspirin [Adult Low Dose Aspirin EC] 81 mg PO DAILY 10/29/15 [History] Atorvastatin Calcium [Lipitor] 80 mg PO HS 10/29/15 [History] Carvedilol [Coreg] 3.125 mg PO BID 10/29/15 [History] Clopidogrel [Plavix] 75 mg PO DAILY 10/29/15 [History] Nitroglycerin [Nitrostat] 0.4 mg SL PRN PRN MDD 3 10/29/15 [History] Oxycodone HCl/Acetaminophen [Percocet 10-325 mg Tablet] 1 tab PO QID PRN [History] Levothyroxine [Synthroid] 50 mcg PO 0630 #30 tablet 10/31/15 [Rx] Pregabalin [Lyrica] 150 mg PO BID PRN 11/23/16 [History] Albuterol Neb [AccuNeb] 0.63 mg IH Q2HR PRN #5 mls 11/25/16 [Rx] Potassium Chloride 10 meq PO DAILY #30 tab.er.prt 11/25/16 [Rx] Furosemide [Lasix] 40 mg PO BID #60 tab 12/08/16 [Rx] Allergies/Adverse Reactions: 3 Allergy/AdvReac Type Severity Reaction Status Date / Time No Known Allergies Allergy Verified 11/23/16 15:40 Date of admission: 11/15/17 16:53 Primary care physician: Hansel Ness - Constitutional Vitals: Temp Pulse Resp BP Pulse Ox 97.9 F 62 16 108/51 93 11/16/17 10:40 11/16/17 10:40 11/16/17 10:40 11/16/17 10:40 11/16/17 10:40 General appearance: Present: A&O X 3, no acute distress, answers questions appropriately - Head Head exam: Present: atraumatic, normal inspection - Neck Neck exam general surgery: Present: supple - Respiratory Respiratory exam: Present: decreased breath sounds. Absent: rales, respiratory distress, rhonchi, wheezes - Cardiovascular Cardiovascular exam: Present: RRR, +S1, +S2. Absent: tachycardia - GI/Abdominal GI/Abdominal exam: Present: soft. Absent: rebound, rigid, tenderness - Extremities Exam Extremities exam: Absent: calf tenderness, pedal edema, tenderness - Back Exam Back exam: Absent: CVA tenderness (L), CVA tenderness (R) - Psychiatric Psychiatric exam: Present: normal affect, normal mood - Patient Status Disposition: Home, Self-Care Condition: Good Overall status at discharge: patient is back to baseline - Ambulatory Orders Ambulatory Orders: XR chest 2V [XR] Time Frame: 11/17/17, Facility: [facility], Location: Radiologist - Discharge Instructions Follow Up With: Hansel Ness [Primary Care Provider] - 11/18/17 1:45 pm (Please follow up as schedule...) Dl De Leon MD [Partnered Physician] - - Diet and Activity Activity: increase activity as tolerated Diet: low salt diet
[2017-11-16] MEDS ORDERED: Furosemide 20 MG TABLET PO SCH (17:00)
--- NOTE | 2017-11-17 16:37 | Electrocardiograph Report ---
[place] [id number] Test Date: 2017-11-15 Pat Name: Vitaliy Breaux Department: 102 Room: 2A12 Gender: M Regulatory Scientist: : [id number] Requested By: [id number] Order Number: [id number] Reading MD: Vee Cardoza Measurements Intervals [place] Rate: 73 P: 55 MO: 189 QRS: 4 QRSD: 149 T: -65 QT: 402 QTc: 429 Interpretive Statements SINUS RHYTHM POSSIBLE LEFT ATRIAL ENLARGEMENT [-0.1mV P WAVE IN V1/V2] LEFT BUNDLE BRANCH BLOCK [120+ ms QRS DURATION, 80+ ms Q/S IN V1/V2, 85+ ms R IN I/aVL/V5/V6] Electronically Signed On 11-17-2017 16:36:15 EDT by Vee Cardoza
== END 2017-11-16 12:02 | disposition home or self-care (01) ==
LOC: 2ANU 14:27 → EMEROO 14:27 → 2ANU 17:40
PROVIDERS: ADMIT Internal Medicine; ATTEND Internal Medicine